=== PATIENT | female | born 1970 | race Caucasian/White ===

== ENCOUNTER 2017-01-15 15:08 | Inpatient (IN) | payer MEDICAID ==
[2017-01-15 16:22] LABS: % IMMATURE GRANULYOCYTES 0.3 % (0.0-1.1); ABSOLUTE IMMATURE GRANULOCYTES 0.03 10^3/uL (0.00-0.10); ADD DIFF? NO; ADD MORPH? NO; ADD SCAN? NO; ATYPICAL LYMPHOCYTE FLAG 10 (0-99); FRAGMENT RBC FLAG 0 (0-99); HEMATOCRIT 33.4 % (38.0-47.0); HEMOGLOBIN 11.1 g/dL (12.6-16.3); LEFT SHIFT FLG 0 (0-99); LIPEMIA HEMOLYSIS FLAG 80 (0-99); MEAN CELL HEMOGLOBIN 32.1 pg (27.9-34.1); MEAN CELL HEMOGLOBIN CONCENTR. 33.2 g/dL (32.4-36.7); MEAN CELL VOLUME 96.5 fL (81.5-99.8); MEAN PLATELET VOLUME 9.3 fL (8.7-11.7); PLATELET CLUMPS FLAG 0 (0-99); PLATELET COUNT 473 10^3/uL (150-400); RED BLOOD CELL COUNT 3.46 10^6/uL (4.18-5.33); RED CELL DISTRIBUTION WIDTH 13.8 % (11.5-15.2)
[2017-01-15 16:26] LABS: APTT 33.2 SEC (23.0-38.0); INR 1.25 (0.83-1.16); PROTIME(PATIENT) 15.7 SEC (12.0-15.0)
[2017-01-15 16:28] LABS: ALANINE AMINOTRANSFERASE 33 IU/L (9-52); ALBUMIN 3.6 g/dL (3.5-5.0); ALKALINE PHOSPHATASE 100 IU/L (38-126); ANION GAP 11 mEq/L (8-16); ASPARTATE AMINOTRANSFERASE 51 IU/L (14-46); BILIRUBIN,TOTAL 0.6 mg/dL (0.1-1.4); BILIRUBIN-CONJUGATED 0.6 mg/dL (0.0-0.5); CALCIUM 9.3 mg/dL (8.5-10.4); CARBON DIOXIDE 23 mEq/l (22-31); CHLORIDE 101 mEq/L (97-110); CREATININE 0.4 mg/dL (0.6-1.0); GLOMERULAR FILTRATION RATE > 60; GLUCOSE 93 mg/dL (70-100); POTASSIUM 4.3 mEq/L (3.5-5.2); SODIUM 135 mEq/L (134-144); TOTAL PROTEIN 8.5 g/dL (6.3-8.2)
[2017-01-15] MEDS ORDERED: PANTOPRAZOLE SODIUM 40 MG in NS 100 ML IV ONE (16:29)
[2017-01-15] MEDS ORDERED: TEMAZEPAM 15 MG CAP PO PRN (16:48)
[2017-01-15] MEDS ORDERED: ONDANSETRON DISINTEGRATING 4 MG TAB PO PRN (16:48)
[2017-01-15] MEDS ORDERED: ONDANSETRON 4 MG/2 ML VIAL IVP PRN (16:48)
--- NOTE | 2017-01-15 17:10 | EDPHY ---
H & P Time Seen by Provider: 01/15/17 15:27 HPI/ROS: CHIEF COMPLAINT: Melena HISTORY OF PRESENT ILLNESS: 46-year-old female presents to the emergency department by private vehicle with her mother complaining of several weeks of melena. The patient states that she has chronic low back pain and has been taking at least 20 ibuprofen daily. She also is an alcoholic and drinks daily. She last drank this morning at 11:00 a.m.. She denies feeling weak. She denies chest pain. She does feel like she is having increasing difficulty breathing. She has had ongoing cough. She has a history of asthma and is a chronic smoker. She complains of lower abdominal pain. She denies urinary symptoms. She has a chronic wound to the lateral aspect of her right foot that is being followed by infectious disease. No fevers or chills. She has never had problems with GI bleed in the past. Her mother states that she has been eating very little because she is not hungry. REVIEW OF SYSTEMS: Constitutional: No fever, no chills. Eyes: No double or blurry vision. ENT: No sore throat. Respiratory: Shortness of breath, cough Cardiac: No chest pain. Gastrointestinal: Abdominal pain and melena as above. No vomiting. Little appetite. Genitourinary: No dysuria. Musculoskeletal: Chronic back pain. No neck pain. Skin: No rashes. Neurological: No headache. Past Medical/Surgical History: Seizure disorder, COPD, arthritis, alcoholism, chronic right drop foot from previous right hip surgery, depression, bilateral hip replacement due to avascular necrosis Social History: Single and lives alone Smoking Status: Heavy smoker Physical Exam: General Appearance: Alert, no distress. Mother at bedside. Blood pressure 131/ 79, heart rate 94, 90% on room air, afebrile 36.9 Eyes: Pupils equal and round. Extraocular motions are all intact. ENT: Mouth: Mucous membranes appear dry. Respiratory: Diffuse expiratory rhonchi throughout. No rales. No respiratory distress. Cardiovascular: Regular rate and rhythm. Gastrointestinal: Abdomen is soft and seems distended. She has mild tenderness with palpation in her suprapubic area. There is no rebound, guarding or masses noted. No CVA tenderness bilaterally. Neurological: Alert and oriented x 3, cranial nerves II through XII grossly intact Rectal exam: Performed with nurse, Domonique, at bedside. Normal rectal tone. Mucous noted with very light colored stool. No obvious melena or bright red blood. Skin: Warm and dry, no rashes. Wound noted to the lateral, plantar aspect of the right foot. Obvious deformity noted to the right foot which is chronic. There is no surrounding redness. There is no drainage from the wound. There is also a wound to the dorsal lateral aspect of her right foot which is minimally tender. There is no redness or warmth. Musculoskeletal: Nontender to palpate along the cervical, thoracic or lumbar spine. Neck is supple. Extremities: Full range of motion and no peripheral edema. Psychiatric: Patient is oriented X 3, there is no agitation. Constitutional: Initial Vital Signs Temperature (C) 36.9 C 01/15/17 15:13 Heart Rate 94 01/15/17: Respiratory Rate 20 01/15/17 15:13 Blood Pressure 131/79 H 01/15/17 15:13 O2 Sat (%) 90 L 01/15/17 15:13 O2 Delivery Mode Room Air O2 (L/minute) 1 Allergies/Adverse Reactions: phenytoin sodium [From Dilantin] Allergy (Intermediate, Verified 01/15/17 15:09) facial swelling, drunk feeling phenytoin sodium extended [From Dilantin] Allergy (Intermediate, Verified 15:09) facial swelling, drunk feeling clarithromycin [From Biaxin] Allergy (Mild, Verified 01/15/17 15:09) FACIAL EDEMA Penicillins Allergy (Mild, Verified 01/15/17 15:09) FACIAL EDEMA Sulfa (Sulfonamide Antibiotics) Allergy (Mild, Verified 01/15/17 15:09) FACIAL EDEMA/ HIVES levofloxacin [From Levaquin] Allergy (Verified 01/15/17 15:09) FACIAL EDEMA, DRUNK FEELING Home Medications: Medication Instructions Recorded Albuterol [Proventil Inhaler HFA 1 - 2 puffs IH Q4 PRN 01/28/14 (*)] Multivitamins [Multivitamin (*)] 1 each PO DAILY #0 tab 05/31/14 Thiamine HCl [Vitamin B-1] 100 mg PO DAILY #0 tab 05/31/14 carBAMazepine ER [Carbatrol (*)] 300 mg PO BID #60 cap 05/31/14 Alendronate Sodium [Fosamax 70 MG 70 mg PO WE@0700 10/30/14 (*)] Calcium Carbonate [Oyster Shell 500 mg PO BID 10/30/14 Calcium 500 mg (*)] Venlafaxine Xr [Effexor Xr 75MG 150 mg PO HS 10/30/14 (*)] Acetaminophen [Tylenol 650/20.3ML 325 - 650 mg TUBE Q6 PRN #0 udcup 11/18/14 Oral Liq (*)] Folic Acid [Folic Acid 1 MG (*)] 1 mg PO DAILY #0 tab 11/18/14 Medical Decision Making ED Course/Re-evaluation: 46-year-old female presents to the emergency department with melena. The patient is hemodynamically stable. This has been going on for several weeks. Patient will be admitted to the hospitalist. Hematocrit today is 34%, hemoglobin 11. No other recent laboratory studies to compare this to. Patient has chronic wounds to the right foot which are being followed by infectious disease. The mother changes the bandage typically every 3 days and states that it is definitely improving. No signs of cellulitis today. Afebrile. Patient was given DuoNeb in the emergency department. Chest x-ray is pending. Patient will be admitted to Dr. Gonzalez, hospitalist. I spoke with Dr. Shruti Dwyer who was on-call for Gastroenterology who did not feel that the patient required octreotide currently. He feels that this is likely subacute and they will plan on doing endoscopy in the morning. She is allowed to have clear liquids until midnight. Differential Diagnosis: Including but not limited to GI bleed, gastritis, esophageal varices, alcoholic gastritis Shortness of breath including but not limited to pulmonary infectious process, COPD, asthma, pulmonary embolus and congestive heart failure. - Data Points Laboratory Results: Laboratory Results 01/15/17 16:00 01/15/17 16:00 01/15/17 01/15/17 01/15/17 16:00 16:00 16:00 WBC RBC Hgb Hct MCV MCH MCHC RDW Plt Count MPV Neut % (Auto) Lymph % (Auto) [place] % (Auto) Eos % (Auto) Baso % (Auto) Nucleat RBC Rel Count Absolute Neuts (auto) Absolute Lymphs (auto) Absolute Monos (auto) Absolute Eos (auto) Absolute Basos (auto) Absolute Nucleated RBC Immature Gran % Immature Gran # PT 15.7 SEC H SEC (12.0-15.0) INR 1.25 H (0.83-1.16) APTT 33.2 SEC SEC (23.0-38.0) Sodium Potassium Chloride Carbon Dioxide Anion Gap BUN Creatinine Estimated GFR Glucose Calcium Total Bilirubin Conjugated Bilirubin Unconjugated Bilirubin AST ALT Alkaline Phosphatase Total Protein Albumin Lipase Beta HCG, Qual NEGATIVE Stool Occult Bld Scrn POSITIVE H (NEGATIVE) 01/15/17 01/15/17 16:00 16:00 WBC 8.96 10^3/uL 10^3/uL (3.80-9.50) RBC 3.46 10^6/uL L 10^6/uL (4.18-5.33) Hgb 11.1 g/dL L g/dL (12.6-16.3) Hct 33.4 % L % (38.0-47.0) MCV 96.5 fL fL (81.5-99.8) MCH 32.1 pg pg (27.9-34.1) MCHC 33.2 g/dL g/dL (32.4-36.7) RDW 13.8 % % (11.5-15.2) Plt Count 473 10^3/uL H 10^3/uL (150-400) MPV 9.3 fL fL (8.7-11.7) Neut % (Auto) 49.2 % % (39.3-74.2) Lymph % (Auto) 28.1 % % (15.0-45.0) [place] % (Auto) 19.5 % H % (4.5-13.0) Eos % (Auto) 1.9 % % (0.6-7.6) Baso % (Auto) 1.0 % % (0.3-1.7) Nucleat RBC Rel Count 0.0 % % (0.0-0.2) Absolute Neuts (auto) 4.40 10^3/uL 10^3/uL (1.70-6.50) Absolute Lymphs (auto) 2.52 10^3/uL 10^3/uL (1.00-3.00) Absolute Monos (auto) 1.75 10^3/uL H 10^3/uL (0.30-0.80) Absolute Eos (auto) 0.17 10^3/uL 10^3/uL (0.03-0.40) Absolute Basos (auto) 0.09 10^3/uL 10^3/uL (0.02-0.10) Absolute Nucleated RBC 0.00 10^3/uL 10^3/uL (0-0.01) Immature Gran % 0.3 % % (0.0-1.1) Immature Gran # 0.03 10^3/uL 10^3/uL (0.00-0.10) PT INR APTT Sodium 135 mEq/L mEq/L (134-144) Potassium 4.3 mEq/L mEq/L (3.5-5.2) Chloride 101 mEq/L mEq/L (97-110) Carbon Dioxide 23 mEq/l mEq/l (22-31) Anion Gap 11 mEq/L mEq/L (8-16) BUN 5 mg/dL L mg/dL (7-23) Creatinine 0.4 mg/dL L mg/dL (0.6-1.0) Estimated GFR > 60 Glucose 93 mg/dL mg/dL (70-100) Calcium 9.3 mg/dL mg/dL (8.5-10.4) Total Bilirubin 0.6 mg/dL mg/dL (0.1-1.4) Conjugated Bilirubin 0.6 mg/dL H mg/dL (0.0-0.5) Unconjugated Bilirubin 0.0 mg/dL mg/dL (0.0-1.1) AST 51 IU/L H IU/L (14-46) ALT 33 IU/L IU/L (9-52) Alkaline Phosphatase 100 IU/L IU/L (38-126) Total Protein 8.5 g/dL H g/dL (6.3-8.2) Albumin 3.6 g/dL g/dL (3.5-5.0) Lipase 297.0 IU/L IU/L (23-300) Beta HCG, Qual Stool Occult Bld Scrn Medications Given: Discontinued Medications Pantoprazole Sodium 40 mg/ (Sodium Chloride) 100 mls @ 200 mls/hr IV EDNOW ONE Stop: 01/15/17 16:58 Last Admin: 01/15/17 17:09 Dose: 100 mls Departure - Departure Disposition: [facility] Acute Clinical Impression: Chronic wound right foot, COPD exacerbation GI bleed Qualifiers: GI bleed type/associated pathology: melena Qualified Code(s): K92.1 - Melena Chronic low back pain Qualifiers: Back pain laterality: unspecified Sciatica presence: without sciatica Qualified Code(s): M54.5 - Low back pain Condition: Good
[2017-01-15] MEDS ORDERED: LORazepam 1 MG TAB PO ONE (17:11)
[2017-01-15] MEDS ORDERED: LORazepam 2 MG/ML INJ IVP PRN (17:11)
[2017-01-15] MEDS ORDERED: LORazepam 2 MG/ML INJ IVP ONE (17:11)
[2017-01-15] MEDS ORDERED: IPRATROPIUM/ALBUTEROL 3 ML DEYVIAL IH ONE (17:16)
--- NOTE | 2017-01-15 17:53 | GHP ---
[f rep st] HISTORY AND PHYSICAL DATE OF ADMISSION: 01/15/2017 CHIEF COMPLAINT: Dark tarry stools. HISTORY OF PRESENT ILLNESS: This is a 46-year-old female who presented initially to her PCPs office with complaints of dark tarry stools. This has been going on for 2-3 weeks. She has had a few episodes of emesis which was bloody. She has felt mildly dizzy. No chest pain. Some shortness of breath. She has been taking about 20 ibuprofen a day given chronic back pain. She drinks at least 6 drinks a day. She was sent from her PCPs office to the emergency department for further evaluation of these complaints. PAST MEDICAL/SURGICAL HISTORY: 1. COPD, currently smoking. 2. Alcohol abuse, history of withdrawal, drinking 6 drinks a day. 3. 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 4. COPD. 5. Drop foot due to right hip replacement. 6. Chronic right foot wound, being followed by Dr. Young. 7. Multiple falls with a history of frontal intracranial hemorrhage and subdural hematoma. 8. Avascular necrosis, status post bilateral hip replacements. 9. Depression. MEDICATIONS: Please see medication reconciliation. ALLERGIES: Phenytoin, clarithromycin, penicillin, sulfa, Levaquin. FAMILY HISTORY: No seizure disorder. SOCIAL HISTORY: She lives in an apartment. She is currently drinking and smoking as above. REVIEW OF SYSTEMS: 10-point review of systems is conducted and is negative except per HPI. PHYSICAL EXAMINATION: VITAL SIGNS: Blood pressure 131/79, heart rate is 94, respiration rate is 20, saturating at 90% on room air, temperature 36.9. GENERAL: The patient is a pleasant female who appears mildly uncomfortable. Otherwise in no acute distress. HEENT: Shows her to be normocephalic, atraumatic. CARDIOVASCULAR: Exam shows a regular rate and rhythm. No murmurs , rubs, or gallops. PULMONARY: Exam shows her lungs to be diffusely rhonchorous with some wheezes. ABDOMINAL: Exam is soft. She is very mildly tender to palpation diffusely. There is no hepatosplenomegaly. SKIN: Exam shows no rash. GENITOURINARY: Exam shows no Marley. NEUROLOGIC: Exam shows her to be alert and oriented x3. She is moving all extremities. PSYCHIATRIC: Exam shows normal mood and affect. EXTREMITIES: Exam shows right lower extremity to have a foot drop. She has a chronic appearing ulcer in the right foot which is nontender to palpation. There is no surrounding erythema or purulence. LABS: Hemoglobin is 11. INR is 1.25. Creatinine is 0.4, BUN is 5, AST is 51. FOBT is positive. DATA: I discussed this with Joanne Rush in the emergency department. IMPRESSION AND PLAN: A 46-year-old female with likely subacute upper gastrointestinal bleed. 1. Upper gastrointestinal bleed: Dr. Dwyer has been consulted. We will plan an endoscopy tomorrow. She is hemodynamically stable. Not tachycardic. Hemoglobin is 11, which is down from her most recent check, but stable with her previous hemoglobins. BUN is notably 5. She will be clear liquids until midnight, n.p.o. after midnight. She will be treated with Protonix 40 mg IV b.i.d. This is a high risk diagnosis. 2. Chronic obstructive pulmonary disease with mild exacerbation: Will scheduled nebulizers for her. She is still smoking. We will hold on prednisone in the setting of a gastrointestinal bleed. 3. Alcohol abuse: There is concern for withdrawal here. I will place her on CIWA. Treat her with symptom triggered benzodiazepines. 4. Seizure disorder: It appears that she is on Tegretol. We will continue this when her medications are reconciled. 5. Drop foot with chronic right lower extremity wound: We will place wound care consult. Does not appear infected at this time. 6. Venous thromboembolism risk is low. /[id number]/MODL MTDD
[2017-01-15] MEDS: oxyCODONE IR 5 MG TAB PO PRN (18:30)
[2017-01-15] MEDS: NS 1,000 ML IV SCH (18:32)
[2017-01-15 18:50] LABS: HEMATOCRIT 34.8 % (38.0-47.0); HEMOGLOBIN 11.6 g/dL (12.6-16.3)
[2017-01-15 18:58] LABS: ETHANOL SERUM 147 mg/dL (0-10)
[2017-01-15] MEDS ORDERED: ALBUTEROL 60 PUFFS/8 GM MDI IH PRN (19:02)
--- NOTE | 2017-01-15 19:26 | WOCRNPDOC ---
WOCRN Advanced Assessment Note - Skin Integrity Problem, Advanced Assess Right Lateral Ankle Pressure Injury Dressing Type: Allevyn Life Dressing Description: Clean/Dry, Intact Integumentary Issue Intervention: Dressing Changed, Dressing Initialed & Dated Lexy Wound Tissue: Blanching, Erythema Wound Bed Color: Red Wound Bed Constitution: Smooth Tissue Wound Edges: Epithelizing Site Measurement - Head-to-Toe Length X Width X Depth (cm): 0.2x0.4x0.1 Pressure Injury Stage: Stage 2 Pressure Injury Present on Admit: Yes Skin Integrity Problem Comment: Wound almost healed. Keep covered for protection. Wound care will round again on 01/22. Right Lateral Foot Pressure Injury Dressing Type: Allevyn Life Exudate Amount: Scant Integumentary Issue Intervention: Dressing Changed, Dressing Initialed & Dated Lexy Wound Tissue: Calloused (and lexy wound skin is green.) Wound Bed Color: [place] Wound Bed Constitution: Smooth Tissue, Undermining (0.3 cm from 2 to 9 oclock) Wound Edges: Not Attached, Epibole, Thick Site Measurement - Head-to-Toe Length X Width X Depth (cm): 0.9x0.6x0.5 Pressure Injury Stage: Stage 3 Pressure Injury Present on Admit: Yes Extremity Temperature: Warm Skin Integrity Problem Comment: Cleaned with wound cleanser. Green skin lexy wound comes off somewhat with cleaning. Sneha moistened with ns and packed lightly in wound bed. Covered with Allevyn life. Student Cinthya in room for care. Discussed plan and confirmed staging with Sonya Bar outpatient wound rn.
[2017-01-15] MEDS: VENLAFAXINE XR 150 MG CAP PO SCH (20:35)
[2017-01-15] MEDS: carBAMazepine ER 300 MG CAP PO SCH (20:35)
[2017-01-15] MEDS: PANTOPRAZOLE SODIUM 40 MG in NS 100 ML IV SCH (20:35)
[2017-01-15] MEDS: CALCIUM CARBONATE 500 MG TAB PO SCH (20:35)
[2017-01-16] MEDS: IPRATROPIUM/ALBUTEROL 3 ML DEYVIAL IH SCH ×5 (00:53→20:48)
[2017-01-16 01:13] LABS: HEMOGLOBIN 10.9 g/dL (12.6-16.3)
[2017-01-16] MEDS: oxyCODONE IR 5 MG TAB PO PRN ×2 (03:56→23:24)
[2017-01-16 04:59] LABS: % IMMATURE GRANULYOCYTES 0.5 % (0.0-1.1); ABSOLUTE IMMATURE GRANULOCYTES 0.04 10^3/uL (0.00-0.10); ADD DIFF? NO; ADD MORPH? NO; ADD SCAN? NO; ATYPICAL LYMPHOCYTE FLAG 10 (0-99); FRAGMENT RBC FLAG 0 (0-99); HEMATOCRIT 33.4 % (38.0-47.0); HEMOGLOBIN 10.8 g/dL (12.6-16.3); LEFT SHIFT FLG 0 (0-99); LIPEMIA HEMOLYSIS FLAG 80 (0-99); MEAN CELL HEMOGLOBIN 32.2 pg (27.9-34.1); MEAN CELL HEMOGLOBIN CONCENTR. 32.3 g/dL (32.4-36.7); MEAN CELL VOLUME 99.7 fL (81.5-99.8); MEAN PLATELET VOLUME 9.4 fL (8.7-11.7); PLATELET CLUMPS FLAG 0 (0-99); PLATELET COUNT 424 10^3/uL (150-400); RED BLOOD CELL COUNT 3.35 10^6/uL (4.18-5.33); RED CELL DISTRIBUTION WIDTH 13.9 % (11.5-15.2)
[2017-01-16] MEDS: NS 1,000 ML IV SCH ×2 (05:05→17:04)
[2017-01-16 05:25] LABS: ALANINE AMINOTRANSFERASE 30 IU/L (9-52); ALBUMIN 3.1 g/dL (3.5-5.0); ALKALINE PHOSPHATASE 101 IU/L (38-126); ANION GAP 6 mEq/L (8-16); ASPARTATE AMINOTRANSFERASE 33 IU/L (14-46); BILIRUBIN,TOTAL 0.5 mg/dL (0.1-1.4); CALCIUM 8.6 mg/dL (8.5-10.4); CARBON DIOXIDE 27 mEq/l (22-31); CHLORIDE 105 mEq/L (97-110); CREATININE 0.4 mg/dL (0.6-1.0); GLOMERULAR FILTRATION RATE > 60; GLUCOSE 90 mg/dL (70-100); MAGNESIUM 1.5 mg/dL (1.6-2.3); POTASSIUM 4.1 mEq/L (3.5-5.2); SODIUM 138 mEq/L (134-144); TOTAL PROTEIN 7.6 g/dL (6.3-8.2)
[2017-01-16] MEDS ORDERED: PROPOFOL 200 MG/20 ML VIAL ONE (08:53)
--- NOTE | 2017-01-16 09:21 | SUROPNOTE ---
[facility] Operative Report - Surgery BRIEF EGD NOTE, FULL NOTE DICTATE EGD Indiction: melena, anemia Medication: per anesthesia Complications: none acutely Findings: 1. Esophagus - mild distal esophagitis 2. Stomach - moderate gastritis throughout - 2 small, gastric ulcers in the antrum - no endoscopic stigmata of bleeding 3. duodenum - larger, deep, ulcer in 2nd portion - no stigmata of bleeding IMPRESSION/RECS: 1. GI BLEED - gastritis and peptic ulcer disease - no stigmata of bleeding at EGD, so no endo therapy applied - ok to change PPI to IV BID, and once tolerating po to PO BID - ok to advance diet - if has evidence of rebleeding, would consider repeat EGD - DC all NSAID use - recommend BID PPI PO x 12 weeks, the QD thereafter - could consider dc of PPI, rat exterminator, if pt can dc NSAIDs/ETOH - but if can not dc NSAIDs care home OR continues to consume ETOH, favor prolonged PPI PO as secondary prophylaxis - h.pylori serology negative - my office will f/u biopsy results with patient - will sign off, call with questions
--- NOTE | 2017-01-16 09:43 | GCON ---
[f rep st] CONSULTATION INPATIENT CONSULTATION NOTE REFERRING PHYSICIAN: Jose Francisco Gonzalez MD REASON FOR CONSULTATION: Melena and anemia. CHIEF COMPLAINT: I was asked to see the patient by Dr. Gonzalez for the evaluation of melena and anemia. HISTORY OF PRESENT ILLNESS: Briefly, the patient is a pleasant 46-year-old alcoholic female who was admitted to the hospital on 01/15/2017 for the evaluation of nausea, abdominal pain, coffee-ground emesis, and melena. She reports she was in her usual state of health until approximately 3 weeks ago when she began having increasing amounts of back pain and abdominal pain. She has been using ibuprofen chronically, with increasing amounts recently. She also drinks at least 6 drinks per day. She was sent by her primary care doctor to the emergency room for evaluation. She reports prior to this she has had no history of melena or coffee-ground emesis. She does have intermittent issues of heartburn and indigestion as well as reflux, but these have been relatively quiescent. She reports some mild dizziness but denies shortness of breath or chest discomfort. PAST MEDICAL HISTORY: Includes COPD, alcohol abuse, seizure disorder, chronic right foot wound, falls complicated by hemorrhage and subdural hematoma, history of avascular necrosis for which she has had hip replacement, depression. ALLERGIES: Phenytoin, clarithromycin, penicillin, sulfa, and Levaquin. MEDICATIONS: Tylenol, calcium, Carbatrol, iron, folic acid, Ativan, Zofran, oxycodone, pantoprazole, Effexor, and thiamine. FAMILY HISTORY: No history of seizure disorders or alcohol abuse. SOCIAL HISTORY: She currently drinks and smokes. REVIEW OF SYSTEMS: A 10-system review was undertaken with the patient and is negative except for those details described in the History of Present Illness. PHYSICAL EXAM: GENERAL: This is a well-developed female in no apparent distress. HEENT: Her pupils are equal, round, reactive to light and accommodation. Her sclerae are nonicteric. Oropharynx is clear. NECK: Supple without lymphadenopathy. HEART: Regular without murmur. ABDOMEN: Soft with mild distention but no tenderness to palpation. LUNGS: CTA EXTREMITIES: Free of cyanosis, clubbing, and edema. NEURO: Grossly nonfocal, although she is slightly tremulous. SKIN: Warm and dry without jaundice. PSYCH: Stable mood and affect. LABORATORY STUDIES: On admission, white count was 8.96, hemoglobin 11.1, hematocrit of 33.4, platelet count of 473. INR of 1.25. Sodium of 135, potassium of 4.3, chloride of 101, bicarb of 23, BUN of 5, creatinine of 0.4, total bilirubin of 0.6, AST of 51, ALT of 33, alkaline phosphatase of 100. Alcohol level on admission was 147. H pylori antibody testing is negative. IMPRESSIONS AND PLAN: The patient is a heavy alcohol user who has also been using large amounts of nonsteroidal antiinflammatory therapies. She has been admitted to the hospital for the evaluation of melena, coffee-ground emesis, and anemia. The differential diagnosis strongly favors peptic disease in this history, although varices, severe gastritis, Dieulafoy, AVM, or even colonic sources of bleeding are possible. At this time, I recommend she remain n.p.o. on an IV proton pump inhibitor. We will arrange upper endoscopy. Given her active alcohol use, seizure disorder, potential for alcohol withdrawal, she is at somewhat high risk for conscious sedation. We will have anesthesia help us to sedate this patient in order to more safely and comfortably provide her sedation for the procedure. Pending the results of upper endoscopy, we can consider additional workup. /[id number]/MODL MTDD
--- NOTE | 2017-01-16 09:49 | GPN ---
[f rep st] PROCEDURE NOTE PROCEDURE: Upper endoscopy. INDICATION: Melena and anemia. MEDICATIONS: Per Anesthesia. COMPLICATIONS: None acutely. DESCRIPTION OF PROCEDURE: After informed consent was obtained, the patient was placed in left later al decubitus position and the forward viewing upper endoscope was advanced through the mouth into th e proximal duodenum. Retroflex views in the gastric cardia were obtained. FINDINGS: 1. Esophagus: She had mild distal esophagitis but no varices were visualized. 2. Stomach: The patient had mild to moderate gastritis throughout the stomach. In the gastric ant rum, there were 2 gastric ulcers. These were deep, small, and clean-based. There were no endoscopi c stigmata of bleeding. No endo therapies were applied. 3. Duodenum: The duodenal bulb showed significant duodenitis. In the 2nd portion of the duodenum, there was a large, deep, cratered duodenal ulcer. This ulcer had food debris within it. Lavage re vealed a clean base without stigmata of bleeding. No endoscopic therapy was applied. 4. Biopsies of the gastritis/ulcer were obtained. IMPRESSION AND PLAN: Gastrointestinal bleed. This patient has had melena over the last 3 weeks fro m intermittent bleeding from gastritis and gastric ulcer and duodenal ulcer. Overall, the duodenal ulcer was the largest and most likely to be the reason for her persistent anemia, coffee-grounds, an d melena. Luckily, there were no stigmata of recent or active bleeding. No endoscopic therapy was applied. At this time, I recommend that the patient have her proton pump inhibitor changed from IV drip to IV b.i.d. Once she is able to tolerate p.o., we can change this therapy to p.o. b.i.d. At this time, given the clean-based nature of the ulcers, we can advance her diet. If she has evidence of rebleeding, would consider repeat upper endoscopy. If she has worsening abdominal pain, would b e concerned about the possibility of perforation in the larger, cratered duodenal ulcer. At this ti me, I recommend she discontinue all nonsteroidal therapies. If possible, she should also discontinu e alcohol. If she is not able to discontinue nonsteroidals or alcohol, I fear she may have rebleedi ng. If she is not able to discontinue nonsteroidals or alcohol, I recommend prolonged daily PPI the rapy as secondary prophylaxis. Helicobacter pylori serologies were negative during this admission. My office will follow up the biopsy results with the patient. At this time, I will sign off the patient's care. If she has evidence of worsening pain or repeat b leeding or there are any questions, please feel free to contact me. /[id number]/MODL
[2017-01-16] MEDS: PANTOPRAZOLE SODIUM 40 MG in NS 100 ML IV SCH ×2 (11:03→21:37)
[2017-01-16] MEDS: carBAMazepine ER 300 MG CAP PO SCH ×2 (11:03→21:37)
[2017-01-16] MEDS: FOLIC ACID 1 MG TAB PO SCH (11:04)
[2017-01-16] MEDS: FERROUS SULFATE 325 MG TAB PO SCH (11:05)
[2017-01-16] MEDS: CALCIUM CARBONATE 500 MG TAB PO SCH ×2 (11:05→21:37)
[2017-01-16] MEDS: THIAMINE HCL 100 MG TAB PO SCH (11:05)
--- NOTE | 2017-01-16 13:31 | HOSPPROG ---
Hospitalist Progress Note Assessment/Plan: 46-year-old female and a known chronic alcoholic presents with melena. Her initial hemoglobin was 11.2 and she underwent an EGD which showed an ulceration in the duodenum. There were no signs of active bleeding. Patient is new to me today. -acute GI bleed secondary to a duodenal ulcer possibly gastric ulcerations. On EGD there was no signs of active bleeding. Plan is to place her on twice daily Protonix and then trend sedation to p.o. Protonix twice daily. On EGD the H pylori was negative, stool was guaiac positive and hemoglobin is now stable at 10.8. -acute alcohol intoxication with known chronic alcohol abuse. Patient admits to 6 beers per day. She is unclear if she wants to stop the use of alcohol. She is on a CIWA protocol with values between 1 and 4 and currently well controlled there has been no seizures. -seizure disorder under maintenance therapy this is probably exacerbated by alcohol abuse but is thought to be of left temporal origin. -COPD: Stable no signs of hypoxemia -hypomagnesemia with magnesium 1.5 and currently being repleted. -is S PCM: Albumin 3.1. Patient has limited appetite at this time but will watch caloric intake. Plan: Patient has our own apartment but clearly at this point cannot take care of herself she has the assistance of her mother but this will be insufficient. We are going to search for a SNF placement for this lady. Once again this whole plan depends on her cessation of alcohol. The plan regarding her DU with denial ulcer is that she will be on PPI medication on a twice daily basis for the next 8-12 weeks and then on a daily blood basis indefinitely until she stops the use of alcohol. -time greater than 35 minutes Subjective: No complaints she has a limited appetite slightly drowsy post EGD. Objective: Vital Signs Temp Pulse Resp BP Pulse Ox 36.6 C 89 18 120/67 91 L 01/16/17 12:44 01/16/17 12:44 01/16/17 12:44 01/16/17 12:44 01/16/17 12:44 Laboratory Results 01/16/17 04:46 01/16/17 04:46 01/15/17 01/16/17 01/17/17 05:59 05:59 05:59 Intake Total 100 250 Balance 100 250 PT 15.7 SEC (12.0-15.0) H 01/15/17 16:00 INR 1.25 (0.83-1.16) H 01/15/17 16:00 - Physical Exam Constitutional: chronically ill appearing, unkempt Eyes: PERRL, icteric sclera Ears, Nose, Mouth, Throat: moist mucous membranes, hearing normal Cardiovascular: regular rate and rhythym, no murmur, rub, or gallop Respiratory: no respiratory distress, bronchial breath sounds Gastrointestinal: normoactive bowel sounds, soft, non-tender abdomen Genitourinary: no bladder fullness Skin: warm, other (pale) Musculoskeletal: generalized weakness Neurologic: AAOx3, CN II-XII Intact Psychiatric: interacting appropriately, poor insight, poor judgement ICD10 Worksheet Patient Problems: Problems Problem Status Onset 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
[2017-01-16] MEDS ORDERED: MAGNESIUM SULF 1 GM/DEXTROSE 100 ML IV ONE (16:50)
[2017-01-16] MEDS: LORazepam 1 MG TAB PO PRN (16:58)
[2017-01-16 21:10] LABS: HEMATOCRIT 32.6 % (38.0-47.0); HEMOGLOBIN 10.6 g/dL (12.6-16.3)
[2017-01-16] MEDS: VENLAFAXINE XR 150 MG CAP PO SCH (21:37)
[2017-01-17] MEDS: oxyCODONE IR 5 MG TAB PO PRN (04:16)
[2017-01-17 05:06] LABS: % IMMATURE GRANULYOCYTES 0.1 % (0.0-1.1); ABSOLUTE IMMATURE GRANULOCYTES 0.01 10^3/uL (0.00-0.10); ADD DIFF? NO; ADD MORPH? NO; ADD SCAN? NO; ATYPICAL LYMPHOCYTE FLAG 0 (0-99); FRAGMENT RBC FLAG 0 (0-99); HEMATOCRIT 32.9 % (38.0-47.0); HEMOGLOBIN 10.7 g/dL (12.6-16.3); LEFT SHIFT FLG 0 (0-99); LIPEMIA HEMOLYSIS FLAG 80 (0-99); MEAN CELL HEMOGLOBIN 31.9 pg (27.9-34.1); MEAN CELL HEMOGLOBIN CONCENTR. 32.5 g/dL (32.4-36.7); MEAN CELL VOLUME 98.2 fL (81.5-99.8); MEAN PLATELET VOLUME 9.5 fL (8.7-11.7); PLATELET CLUMPS FLAG 0 (0-99); PLATELET COUNT 383 10^3/uL (150-400); RED BLOOD CELL COUNT 3.35 10^6/uL (4.18-5.33); RED CELL DISTRIBUTION WIDTH 13.6 % (11.5-15.2)
[2017-01-17 05:19] LABS: ALANINE AMINOTRANSFERASE 27 IU/L (9-52); ALKALINE PHOSPHATASE 100 IU/L (38-126); ANION GAP 8 mEq/L (8-16); ASPARTATE AMINOTRANSFERASE 28 IU/L (14-46); BILIRUBIN,TOTAL 0.6 mg/dL (0.1-1.4); CALCIUM 8.3 mg/dL (8.5-10.4); CARBON DIOXIDE 26 mEq/l (22-31); CHLORIDE 103 mEq/L (97-110); CREATININE 0.4 mg/dL (0.6-1.0); GLOMERULAR FILTRATION RATE > 60; GLUCOSE 91 mg/dL (70-100); MAGNESIUM 1.7 mg/dL (1.6-2.3); POTASSIUM 3.6 mEq/L (3.5-5.2); SODIUM 137 mEq/L (134-144); TOTAL PROTEIN 7.4 g/dL (6.3-8.2)
[2017-01-17] MEDS: IPRATROPIUM/ALBUTEROL 3 ML DEYVIAL IH SCH ×4 (05:55→21:28)
[2017-01-17] MEDS: ACETAMINOPHEN 325 MG TAB PO PRN ×3 (07:43→19:54)
[2017-01-17 08:20] LABS: HEMATOCRIT 33.2 % (38.0-47.0); HEMOGLOBIN 10.8 g/dL (12.6-16.3)
[2017-01-17] MEDS: PANTOPRAZOLE SODIUM 40 MG in NS 100 ML IV SCH ×2 (08:40→19:55)
[2017-01-17] MEDS: THIAMINE HCL 100 MG TAB PO SCH (08:43)
[2017-01-17] MEDS: CALCIUM CARBONATE 500 MG TAB PO SCH ×2 (08:43→19:55)
[2017-01-17] MEDS: carBAMazepine ER 300 MG CAP PO SCH ×2 (08:43→19:55)
[2017-01-17] MEDS: FOLIC ACID 1 MG TAB PO SCH (08:43)
[2017-01-17] MEDS: FERROUS SULFATE 325 MG TAB PO SCH (08:44)
[2017-01-17] MEDS: NS 1,000 ML IV SCH (09:44)
--- NOTE | 2017-01-17 16:55 | HOSPPROG ---
Hospitalist Progress Note Assessment/Plan: 46-year-old female and a known chronic alcoholic presents with melena. Her initial hemoglobin was 11.2 and she underwent an EGD which showed an ulceration in the duodenum. There were no signs of active bleeding. Patient improved the last 24 hours. She is more alert less agitated though continues to be weak. -acute GI bleed secondary to a duodenal ulcer possibly gastric ulcerations. On EGD there was no signs of active bleeding. Plan is to place her on twice daily Protonix and then trend sedation to p.o. Protonix twice daily. On EGD the H pylori was negative, stool was guaiac positive and hemoglobin is stable at 10.8. No signs of active bleeding -acute alcohol intoxication with known chronic alcohol abuse. Patient admits to 6 beers per day. She is unclear if she wants to stop the use of alcohol. She is on a CIWA protocol with values between 1 and 4 and currently well controlled there has been no seizures. -seizure disorder under maintenance therapy this is probably exacerbated by alcohol abuse but is thought to be of left temporal origin. -COPD: Stable no signs of hypoxemia. She is on four times daily bronchodilator treatments. -hypomagnesemia with magnesium 1.5 and currently being repleted. -is SPCM: Albumin 3.0 Patient has limited appetite at this time but will watch caloric intake. Plan: Patient has our own apartment but clearly at this point cannot take care of herself she has the assistance of her mother but this will be insufficient. We are going to search for a SNF placement for this lady. Once again this whole plan depends on her cessation of alcohol. The plan regarding her DU with ulcer is that she will be on PPI medication on a twice daily basis for the next 8-12 weeks and then on a daily blood basis indefinitely until she stops the use of alcohol. -time greater than 35 minutes Subjective: Says she is feeling improved but continues to be quite weak. No nausea or vomiting she has a limited appetite but is working to eat more. Denies chest pain or shortness of breath Objective: Vital Signs Temp Pulse Resp BP Pulse Ox 36.6 C 81 16 146/77 H 93 01/17/17 16:00 01/17/17 16:00 01/17/17 16:00 01/17/17 16:00 01/17/17 16:00 Laboratory Results 01/17/17 08:10 01/17/17 04:13 01/16/17 01/17/17 01/18/17 05:59 05:59 05:59 Intake Total 2600 Balance 2600 PT 15.7 SEC (12.0-15.0) H 01/15/17 16:00 INR 1.25 (0.83-1.16) H 01/15/17 16:00 - Time Spent With Patient Time Spent with Patient: greater than 35 minutes Time Spent with Patient: Greater than 35 minutes spent on this patients care, greater than 50% of time spent counseling, educating, and coordinating care regarding the above mentioned plan. 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
[2017-01-17 19:38] LABS: HEMATOCRIT 32.3 % (38.0-47.0); HEMOGLOBIN 10.5 g/dL (12.6-16.3)
[2017-01-17] MEDS: VENLAFAXINE XR 150 MG CAP PO SCH (19:55)
[2017-01-17] MEDS: LORazepam 1 MG TAB PO PRN (20:01)
[2017-01-18] MEDS: IPRATROPIUM/ALBUTEROL 3 ML DEYVIAL IH SCH ×4 (05:08→20:56)
[2017-01-18 05:55] LABS: MAGNESIUM 1.7 mg/dL (1.6-2.3)
[2017-01-18] MEDS: ACETAMINOPHEN 325 MG TAB PO PRN ×3 (08:09→19:49)
--- NOTE | 2017-01-18 08:31 | HOSPPROG ---
Hospitalist Progress Note Assessment/Plan: 46-year-old female and a known chronic alcoholic presents with melena. Her initial hemoglobin was 11.2 and she underwent an EGD which showed an ulceration in the duodenum. There were no signs of active bleeding. Patient improved the last 24 hours. She is more alert less agitated though continues to be weak. -acute GI bleed secondary to a duodenal ulcer possibly gastric ulcerations. On EGD there was no signs of active bleeding. Plan is to place her on twice daily Protonix and then trend sedation to p.o. Protonix twice daily. On EGD the H pylori was negative, stool was guaiac positive and hemoglobin is stable at 10.8. No signs of active bleeding -acute alcohol intoxication with known chronic alcohol abuse. Patient admits to 6 beers per day. She is unclear if she wants to stop the use of alcohol. She is on a CIWA protocol with values between 1 and 4 and currently well controlled there has been no seizures. -seizure disorder under maintenance therapy this is probably exacerbated by alcohol abuse but is thought to be of left temporal origin. -COPD: Stable no signs of hypoxemia. She is on four times daily bronchodilator treatments. -hypomagnesemia with magnesium 1.5 and currently being repleted. -is SPCM: Albumin 3.0 Patient has limited appetite at this time but will watch caloric intake. Plan: Patient has our own apartment but clearly at this point cannot take care of herself she has the assistance of her mother but this will be insufficient. We are going to search for a SNF placement for this lady. Once again this whole plan depends on her cessation of alcohol. The plan regarding her DU with ulcer is that she will be on PPI medication on a twice daily basis for the next 8-12 weeks and then on a daily blood basis indefinitely until she stops the use of alcohol. -time greater than 35 minutes Subjective: No complaints. She says she has has a better appetite and is eating slightly more. No chest pain. She does not complain of shortness of breath although she is on supplemental oxygen. She reports moving her bowels. No dysuria Objective: Vital Signs Temp Pulse Resp BP Pulse Ox 36.9 C 70 16 135/75 H 97 01/18/17 04:00 01/18/17 04:00 01/18/17 04:00 01/18/17 04:00 01/18/17 04:00 Laboratory Results 01/17/17 19:28 01/17/17 04:13 01/17/17 01/18/17 01/19/17 05:59 05:59 05:59 Intake Total 2600 Balance 2600 PT 15.7 SEC (12.0-15.0) H 01/15/17 16:00 INR 1.25 (0.83-1.16) H 01/15/17 16:00 Laboratory Tests 01/15/17 01/15/17 01/16/17 16:00 18:20 01:05 WBC Hgb 11.6 L 10.9 L INR 1.25 H Albumin 01/16/17 01/17/17 01/17/17 04:46 04:13 04:13 WBC 8.57 7.58 Hgb INR Albumin 3.0 L 01/17/17 01/17/17 08:10 19:28 WBC Hgb 10.8 L 10.5 L INR Albumin - Pending Discharge Pending Discharge Within 24 Hours: No Pending Discharge Within 48 Hours: Yes Pending Discharge Date: 01/20/17 Pending Discharge Time: 11:00 - Physical Exam Constitutional: no apparent distress, chronically ill appearing Eyes: PERRL Ears, Nose, Mouth, Throat: moist mucous membranes Cardiovascular: regular rate and rhythym, no murmur, rub, or gallop Respiratory: no respiratory distress, no rales or rhonchi Gastrointestinal: normoactive bowel sounds, soft, non-tender abdomen Musculoskeletal: generalized weakness Neurologic: AAOx3, CN II-XII Intact Psychiatric: interacting appropriately ICD10 Worksheet Patient Problems: Problems Problem Status Onset 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
[2017-01-18] MEDS: CALCIUM CARBONATE 500 MG TAB PO SCH ×2 (09:08→22:15)
[2017-01-18] MEDS: PANTOPRAZOLE SODIUM 40 MG in NS 100 ML IV SCH ×2 (09:08→22:03)
[2017-01-18] MEDS: FOLIC ACID 1 MG TAB PO SCH (09:08)
[2017-01-18] MEDS: carBAMazepine ER 300 MG CAP PO SCH ×2 (09:08→22:15)
[2017-01-18] MEDS: FERROUS SULFATE 325 MG TAB PO SCH (09:08)
[2017-01-18] MEDS: THIAMINE HCL 100 MG TAB PO SCH (09:08)
[2017-01-18] MEDS: VENLAFAXINE XR 150 MG CAP PO SCH (22:14)
[2017-01-18] MEDS: LORazepam 1 MG TAB PO PRN (22:43)
[2017-01-19] MEDS: ACETAMINOPHEN 325 MG TAB PO PRN ×3 (01:15→15:38)
[2017-01-19] MEDS: IPRATROPIUM/ALBUTEROL 3 ML DEYVIAL IH SCH ×4 (05:38→22:29)
[2017-01-19] MEDS: AZITHROMYCIN IV 500 MG in D5W 250 ML IV SCH (09:19)
[2017-01-19] MEDS: carBAMazepine ER 300 MG CAP PO SCH ×2 (10:53→20:38)
[2017-01-19] MEDS: CALCIUM CARBONATE 500 MG TAB PO SCH ×2 (10:53→20:38)
[2017-01-19] MEDS: THIAMINE HCL 100 MG TAB PO SCH (10:54)
[2017-01-19] MEDS: PANTOPRAZOLE SODIUM 40 MG TAB PO SCH ×2 (10:54→20:38)
[2017-01-19] MEDS: FERROUS SULFATE 325 MG TAB PO SCH (10:54)
[2017-01-19] MEDS: FOLIC ACID 1 MG TAB PO SCH (10:54)
[2017-01-19] MEDS ORDERED: FUROSEMIDE 20 MG/2 ML VIAL IVP ONE (14:36)
[2017-01-19] MEDS ORDERED: ACETAMINOPHEN 325 MG TAB ONE (15:37)
--- NOTE | 2017-01-19 16:19 | HOSPPROG ---
Hospitalist Progress Note Assessment/Plan: 46-year-old female and a known chronic alcoholic presents with melena. Her initial hemoglobin was 11.2 and she underwent an EGD which showed an ulceration in the duodenum. There were no signs of active bleeding. The last 24 hours the patient is making slow improvement. She has been up in a chair and taking a few walks with PT. -acute GI bleed secondary to a duodenal ulcer possibly gastric ulcerations. On EGD there was no signs of active bleeding. Plan is to place her on twice daily Protonix and then trend sedation to p.o. Protonix twice daily. On EGD the H pylori was negative, stool was guaiac positive and hemoglobin is stable at 10.8. No signs of active bleeding -new problem: possible CHF, systolic: Patient has persistent rhonchi and rales despite a normal SA O2 on room air. A echocardiogram approximately 1 year ago showed an EF of 75%. Is possible she has some cardiac dysfunction from alcohol abuse. Today I will give her a dose of Lasix and see if the rales improved. -acute alcohol intoxication with known chronic alcohol abuse. Patient admits to 6 beers per day. She is unclear if she wants to stop the use of alcohol. She is on a CIWA protocol with values between 1 and 4 and currently well controlled there has been no seizures. -seizure disorder under maintenance therapy this is probably exacerbated by alcohol abuse but is thought to be of left temporal origin. -COPD: Stable no signs of hypoxemia. She is on four times daily bronchodilator treatments. -hypomagnesemia with magnesium 1.5 and currently being repleted. -is SPCM: Albumin 3.0 Patient has limited appetite at this time but will watch caloric intake. Plan: Patient has our own apartment but clearly at this point cannot take care of herself she has the assistance of her mother but this will be insufficient. We are going to search for a SNF placement for this lady. Once again this whole plan depends on her cessation of alcohol. The plan regarding her DU with ulcer is that she will be on PPI medication on a twice daily basis for the next 8-12 weeks and then on a daily blood basis indefinitely until she stops the use of alcohol. -time greater than 35 minutes Disposition: Patient to be discharged to an SNF tomorrow Subjective: No complaints though she is feeling slightly improved continues to be slightly tachypneic with exertion. Objective: Vital Signs Temp Pulse Resp BP Pulse Ox 36.9 C 82 18 127/79 H 94 01/19/17 12:00 01/19/17 12:00 01/19/17 12:00 01/19/17 12:00 01/19/17 12:00 Laboratory Results 01/17/17 19:28 01/17/17 04:13 01/18/17 01/19/17 01/20/17 05:59 05:59 05:59 Intake Total 400 Balance 400 PT 15.7 SEC (12.0-15.0) H 01/15/17 16:00 INR 1.25 (0.83-1.16) H 01/15/17 16:00 - Time Spent With Patient Time Spent with Patient: greater than 35 minutes Time Spent with Patient: Greater than 35 minutes spent on this patients care, greater than 50% of time spent counseling, educating, and coordinating care regarding the above mentioned plan. - Pending Discharge Pending Discharge Within 24 Hours: Yes Pending Discharge Date: 01/20/17 Pending Discharge Time: 11:00 - Physical Exam Constitutional: no apparent distress, chronically ill appearing Eyes: PERRL Ears, Nose, Mouth, Throat: moist mucous membranes Cardiovascular: regular rate and rhythym, systolic murmur Respiratory: expiratory wheeze, bronchial breath sounds, rhonchi Gastrointestinal: normoactive bowel sounds, soft, non-tender abdomen, no palpable masses Genitourinary: no bladder fullness Skin: warm Musculoskeletal: generalized weakness Neurologic: AAOx3, CN II-XII Intact ICD10 Worksheet Patient Problems: Problems Problem Status Onset COPD exacerbation Acute Chronic low back pain Acute GI bleed Acute Avascular necrosis of the head of femur Active Bronchitis Active Alcohol abuse with intoxication delirium Acute Alcohol abuse, continuous Acute Subdural hematoma, acute Acute
[2017-01-19] MEDS: VENLAFAXINE XR 150 MG CAP PO SCH (20:38)
[2017-01-19] MEDS: LORazepam 1 MG TAB PO PRN (20:38)
[2017-01-20] MEDS: IPRATROPIUM/ALBUTEROL 3 ML DEYVIAL IH SCH ×3 (05:45→15:50)
[2017-01-20 06:27] LABS: % IMMATURE GRANULYOCYTES 0.2 % (0.0-1.1); ABSOLUTE IMMATURE GRANULOCYTES 0.02 10^3/uL (0.00-0.10); ADD DIFF? NO; ADD MORPH? NO; ADD SCAN? NO; ATYPICAL LYMPHOCYTE FLAG 0 (0-99); FRAGMENT RBC FLAG 20 (0-99); HEMOGLOBIN 11.2 g/dL (12.6-16.3); LEFT SHIFT FLG 10 (0-99); LIPEMIA HEMOLYSIS FLAG 80 (0-99); MEAN CELL HEMOGLOBIN 32.1 pg (27.9-34.1); MEAN CELL HEMOGLOBIN CONCENTR. 32.9 g/dL (32.4-36.7); MEAN CELL VOLUME 97.4 fL (81.5-99.8); MEAN PLATELET VOLUME 10.2 fL (8.7-11.7); PLATELET CLUMPS FLAG 10 (0-99); PLATELET COUNT 352 10^3/uL (150-400); RED BLOOD CELL COUNT 3.49 10^6/uL (4.18-5.33); RED CELL DISTRIBUTION WIDTH 13.3 % (11.5-15.2)
[2017-01-20 06:59] LABS: ALANINE AMINOTRANSFERASE 29 IU/L (9-52); ALBUMIN 3.4 g/dL (3.5-5.0); ALKALINE PHOSPHATASE 106 IU/L (38-126); ANION GAP 10 mEq/L (8-16); ASPARTATE AMINOTRANSFERASE 31 IU/L (14-46); BILIRUBIN,TOTAL 0.7 mg/dL (0.1-1.4); CALCIUM 8.9 mg/dL (8.5-10.4); CARBON DIOXIDE 25 mEq/l (22-31); CHLORIDE 102 mEq/L (97-110); CREATININE 0.5 mg/dL (0.6-1.0); GLOMERULAR FILTRATION RATE > 60; GLUCOSE 85 mg/dL (70-100); POTASSIUM 3.2 mEq/L (3.5-5.2); SODIUM 137 mEq/L (134-144)
[2017-01-20 08:11] VITALS: TEMP 97.9
[2017-01-20] MEDS: AZITHROMYCIN IV 500 MG in D5W 250 ML IV SCH (09:18)
[2017-01-20] MEDS: carBAMazepine ER 300 MG CAP PO SCH (11:05)
[2017-01-20] MEDS: CALCIUM CARBONATE 500 MG TAB PO SCH (11:05)
[2017-01-20] MEDS: FOLIC ACID 1 MG TAB PO SCH (11:06)
[2017-01-20] MEDS: THIAMINE HCL 100 MG TAB PO SCH (11:06)
[2017-01-20] MEDS: FERROUS SULFATE 325 MG TAB PO SCH (11:06)
[2017-01-20] MEDS: PANTOPRAZOLE SODIUM 40 MG TAB PO SCH (11:06)
[2017-01-20] MEDS: ACETAMINOPHEN 325 MG TAB PO PRN ×2 (11:10→15:22)
[2017-01-20 11:31] VITALS: PULSE 90; RESP 14; O2SAT 96
[2017-01-20 16:01] VITALS: BP 91/68
--- NOTE | 2017-01-20 20:18 | GDS ---
[f rep st] DISCHARGE SUMMARY NEW AND ACUTE DIAGNOSES: 1. Acute gastrointestinal bleed/duodenal bleed with findings of esophagitis without varices and mil [id number] gastritis and significant duodenitis with a cratered, deep duodenal ulcer. 2. Acute exacerbation of chronic obstructive pulmonary disease with acute bronchitis. 3. Acute alcohol abuse and alcohol withdrawal. 4. 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 5. Right foot wound followed by Infectious Disease. CHRONIC DIAGNOSES: 1. Right foot drop. 2. History of multiple falls with a history of a frontal intracranial hemorrhage and subdural hemat kaylie. 3. Avascular necrosis status post bilateral hip replacements. 4. Depression. CONSULTATIONS: Gastroenterology. PROCEDURES: Esophagogastroduodenoscopy showing findings as noted above. HOSPITAL COURSE: A 46-year-old female with a known long history of alcohol abuse and COPD and tobac co abuse who presented with dark and tarry stools. She was admitted for GI bleeding and found to rahman ve esophagitis, gastritis, and deep erosive duodenal ulcer. She was placed on IV Protonix and then transitioned to p.o. b.i.d. PPI medication. She did not require transfusion. During the hospitaliz ation, she was treated for alcohol withdrawal under CIWA protocol, and treated for an acute exacerba tion of COPD with antibiotics and bronchodilators. Though she had an underlying seizure disorder, s he was treated with her usual medications and did not have an exacerbation of her seizure. Wound ca re was provided to the right foot. Note also she lists Levaquin as an allergy. She was given 1 dose Levaquin and she had a little itch ing at the injection site and a little flushing of the face. This abated easily with Benadryl. Her listed Levaquin allergy has not an allergy. I suggest she be premedicated with Benadryl before giv en Levaquin, as she safely tolerated it during this hospitalization. DISCHARGE MEDICATIONS: Azithromycin 500 mg p.o. daily x4 days, an Advair inhaler 250/50 mcg 1 puff b.i.d., Proventil rescue inhaler 1-2 puffs q.4 hours p.r.n., Protonix 40 mg b.i.d., thiamine 100 mg daily, multivitamin daily, Effexor 150 mg q.h.s., folic acid 1 mg daily, ferrous sulfate 325 mg neymar y, Carbatrol 300 mg b.i.d., calcium 500 mg b.i.d. PLAN: The patient originally was planned to be admitted to an SNF. Ultimately, she and her mother decided that she would be going home with her mother. Plans have been made for her to follow up dnea MICHAEL and have a sponsor and these plans have been established before discharge. Her followup will b e with Dr. Shoemaker of gastroenterology in 2 weeks, Dr. Ahmet Solomon in 2-4 weeks for her pulmonary car e, and Yue John, her primary care provider. This has been explained to the mother in the pr esence of the patient. TIME SPENT: This discharge required 50 minutes, greater than 50% to counseling department chair, coordinate care, and d iscuss matters with the mother for her ongoing care. /[id number]/MODL
== END 2017-01-20 16:20 | disposition home health service (06) | DRG 378 ==
LOC: F3E 18:02 → OBSVTOIN 01-16 16:50
PROVIDERS: ADMIT Student in an Organized Health Care Education/Training Program; ATTEND Internal Medicine Pulmonary Disease
PROC: 0DB98ZX Excision of Duodenum, Via Natural or Artificial Opening Endoscopic, Diagnostic (ICD-10-PCS; principal; 2017-01-16 09:00)
PROC: 0DB68ZX Excision of Stomach, Via Natural or Artificial Opening Endoscopic, Diagnostic (ICD-10-PCS; principal; 2017-01-16 09:00)
DX: K26.0 Acute duodenal ulcer with hemorrhage (principal); K25.0 Acute gastric ulcer with hemorrhage; F10.230 Alcohol dependence with withdrawal, uncomplicated; D50.0 Iron deficiency anemia secondary to blood loss (chronic); J44.1 Chronic obstructive pulmonary disease with (acute) exacerbation; T39.315A Adverse effect of propionic acid derivatives, initial encounter; L97.519 Non-pressure chronic ulcer of other part of right foot with unspecified severity; M21.371 Foot drop, right foot; G40.909 Epilepsy, unspecified, not intractable, without status epilepticus; F32.9 Major depressive disorder, single episode, unspecified; F17.210 Nicotine dependence, cigarettes, uncomplicated; Z87.820 Personal history of traumatic brain injury; Z91.81 History of falling; Z96.643 Presence of artificial hip joint, bilateral; Z88.0 Allergy status to penicillin; Y90.6 Blood alcohol level of 120-199 mg/100 ml
CPT/HCPCS: 85025-PO; 92507-GN; 92523-GN; 97110-GP; 97116-GP; 97162-GP; 97165-GO; 97530-GP; 97535-GO; G0480; J0456; J1956; J2060; J2704; J3475

== ENCOUNTER → 2017-02-27 | Outpatient (CLI) | payer MEDICAID | LOC: FIMAGING 15:52 | PROVIDERS: ATTEND Internal Medicine Infectious Disease | DX: L97.412 Non-pressure chronic ulcer of right heel and midfoot with fat layer exposed (principal); M89.9 Disorder of bone, unspecified ==

== ENCOUNTER → 2017-03-17 | Outpatient (CLI) | payer MEDICAID | LOC: FIMAGING 15:17 | PROVIDERS: ATTEND Internal Medicine Pulmonary Disease | DX: R91.8 Other nonspecific abnormal finding of lung field (principal); J43.9 Emphysema, unspecified; F17.200 Nicotine dependence, unspecified, uncomplicated; S22.41XA Multiple fractures of ribs, right side, initial encounter for closed fracture; S32.010A Wedge compression fracture of first lumbar vertebra, initial encounter for closed fracture; M48.06 Spinal stenosis, lumbar region; E27.9 Disorder of adrenal gland, unspecified ==

== ENCOUNTER 2017-04-22 08:07 | Inpatient (IN) | payer MEDICAID ==
--- NOTE | 2017-03-26 14:57 | CPEKG ---
Heart Rate: 86 RR Interval: 698 P-R Interval: 176 QRSD Interval: 90 QT Interval: 384 QTC Interval: 460 P [place]: 54 QRS [place]: 109 T Wave [place]: 6 EKG Severity - OTHERWISE NORMAL ECG - EKG Impression: SINUS RHYTHM EKG Impression: RIGHT AXIS DEVIATION Electronically Signed By: Will Coyle 26-Mar-2017 20:28:38
[2017-03-26 15:27] LABS: % IMMATURE GRANULYOCYTES 0.6 % (0.0-1.1); ABSOLUTE IMMATURE GRANULOCYTES 0.06 10^3/uL (0.00-0.10); ADD DIFF? NO; ADD MORPH? NO; ADD SCAN? NO; ATYPICAL LYMPHOCYTE FLAG 10 (0-99); FRAGMENT RBC FLAG 0 (0-99); HEMATOCRIT 40.1 % (38.0-47.0); HEMOGLOBIN 13.4 g/dL (12.6-16.3); LEFT SHIFT FLG 0 (0-99); LIPEMIA HEMOLYSIS FLAG 80 (0-99); MEAN CELL HEMOGLOBIN 30.5 pg (27.9-34.1); MEAN CELL HEMOGLOBIN CONCENTR. 33.4 g/dL (32.4-36.7); MEAN CELL VOLUME 91.1 fL (81.5-99.8); MEAN PLATELET VOLUME 10.1 fL (8.7-11.7); PLATELET CLUMPS FLAG 0 (0-99); PLATELET COUNT 324 10^3/uL (150-400); RED CELL DISTRIBUTION WIDTH 13.9 % (11.5-15.2)
--- NOTE | 2017-04-21 17:44 | GHP ---
[f rep st] PREOP HISTORY AND PHYSICAL DATE OF ADMISSION: 04/22/2017 CHIEF COMPLAINT: Right foot. HISTORY OF PRESENT ILLNESS: The patient is a 46-year-old with history of progressive right foot pain, deformity, and ulcerations. She has tried bracing , and multiple times wound management without any success. PAST MEDICAL HISTORY: Positive for diabetes, asthma, depression, GERD, seizures. PAST SURGICAL HISTORY: Positive for 2 hip surgeries. SOCIAL HISTORY: Positive for cigarette smoking of a pack per day. MEDICATIONS: Carbatrol, folic acid, loratadine, QVAR inhaler. ALLERGIES: Penicillin. PHYSICAL EXAMINATION: GENERAL: She is alert and oriented x3, in some distress secondary to her foot. HEENT: Head is normocephalic. Pupils equal, round, reactive to light. Extraocular eye movements intact. NECK: Supple. CHEST: Bilateral mild crackles throughout. HEART: Regular rate and rhythm. No murmurs or gallops. ABDOMEN: Soft, nontender, nondistended. No organomegaly. EXTREMITIES: Right equinovarus deformity. There is an ulceration, which is full thickness with some drainage. ASSESSMENT: 1. Right foot infection. 2. Right equinovarus deformity. PLAN: The patient is scheduled for a below-knee amputation. /[id number]/MODL MTDD
[2017-04-22] MEDS ORDERED: LR 1,000 ML IV ONE (08:44)
[2017-04-22] MEDS ORDERED: LIDOCAINE 1% 2 ML INJ ID PRN (08:44)
[2017-04-22] MEDS ORDERED: CLINDAMYCIN 600 MG/DEXTROSE 50 ML IV ONE (09:33)
--- NOTE | 2017-04-22 09:36 | PDHPUP ---
History & Physical Update H&P update statement: This history and physical update is based on an assessment of the patient which was completed after admission or registration (within 24 hours), but prior to the surgery/procedure. H&P update: no change in patient's condition since H&P completed
[2017-04-22] MEDS ORDERED: MIDAZOLAM 2 MG/2 ML VIAL ONE (09:46)
[2017-04-22] MEDS ORDERED: MIDAZOLAM 2 MG/2 ML VIAL IVP ONE (09:47)
--- NOTE | 2017-04-22 09:49 | PDANEPAE ---
ANE History of Present Illness r foot ulcer, pain ANE Past Medical History - Cardiovascular History Hx Hypertension: No Hx Arrhythmias: No Hx Chest Pain: No Hx Coronary Artery / Peripheral Vascular Disease: No Hx CHF / Valvular Disease: No Hx Palpitations: No - Pulmonary History Hx COPD: Yes Hx Asthma/Reactive Airway Disease: Yes Hx Recent Upper Respiratory Infection: No Hx Oxygen in Use at Home: No Hx Sleep Apnea: Yes Sleep Apnea Screening Result - Last Documented: Positive Pulmonary History Comment: hx of heavy smoking-in process of quitting;4-5 cigs currently. SOB w/walking. - Neurologic History Hx Cerebrovascular Accident: No Hx Seizures: Yes Hx Dementia: No Neurologic History Comment: "brain surgery for epilepsy" helped pt. Last seizure : 2 mos ago. - Endocrine History Hx Diabetes: No - Renal History Hx Renal Disorders: No - Liver History Hx Hepatic Disorders: Yes Hepatic History Comment: states no problems - Neurological & Psychiatric Hx Hx Neurological and Psychiatric Disorders: Yes Neurological / Psychiatric History Comment: low back pain - caused from walking w/ painful R ft. hx scoliosis. on Rx-depression - Cancer History Hx Cancer: No - Congenital Disorder History Hx Congenital Disorders: No - GI History Hx Gastrointestinal Disorders: Yes Gastrointestinal History Comment: hospitalized at [facility] for bleeding ulcers. Stopped drinking alcohol since. Detoxed for 5 days at [facility]. Attends AA. GERD-on Rx - Other Health History Other Health History: R ft pain- intermittent. "whole R side is painful- intermittent. - Chronic Pain History Chronic Pain: Yes (R side of body, low back) - Surgical History Prior Surgeries: "brain surgery for epilepsy 05-20-1996. bilat total hips. L arm ORIF ANE Review of Systems - Exercise capacity METS (RN): 3 METS ANE Patient History - Allergies Allergies/Adverse Reactions: phenytoin sodium [From Dilantin] Allergy (Intermediate, Verified 03/24/17 13:56) facial swelling, drunk feeling phenytoin sodium extended [From Dilantin] Allergy (Intermediate, Verified 13:56) facial swelling, drunk feeling clarithromycin [From Biaxin] Allergy (Mild, Verified 03/24/17 13:56) FACIAL EDEMA Penicillins Allergy (Mild, Verified 03/24/17 13:56) FACIAL EDEMA Sulfa (Sulfonamide Antibiotics) Allergy (Mild, Verified 03/24/17 13:56) FACIAL EDEMA/ HIVES levofloxacin [From Levaquin] Allergy (Verified 03/24/17 13:56) FACIAL EDEMA, DRUNK FEELING - Home Medications Home Medications: Calcium Carbonate [Oyster Shell Calcium 500 mg (*)] 500 mg PO BID 10/30/14 [ Last Taken 04/08/17] Ferrous Sulfate [Ferrous Sulf 325 MG (*)] 325 mg PO DAILY 01/15/17 [Last Taken 04/21/17] Venlafaxine Xr [Effexor Xr] 150 mg PO HS 01/15/17 [Last Taken 04/21/17 12:30] Acetaminophen [Tylenol ES 500 mg (*)] 1,000 mg PO Q8HRS PRN 03/17/17 [Last Taken 04/22/17 06:30] traMADol [Ultram 50 mg (*)] 50 mg PO Q4-6PRN PRN 03/17/17 [Last Taken 04/08/17] - NPO status NPO Since - Liquids (Date): 04/21/17 NPO Since - Liquids (Time): 06:30 NPO Since - Solids (Date): 04/21/17 NPO Since - Solids (Time): 22:30 - Smoking Hx Smoking Status: Heavy smoker ANE Labs/Vital Signs - Labs Result Diagrams: 03/26/17 14:47 04/22/17 09:30 - Vital Signs Blood Pressure: 122/86 Heart Rate: 97 Respiratory Rate: 16 O2 Sat (%): 92 Height: 154.94 cm Weight: 55.338 kg ANE Physical Exam - Airway Neck exam: FROM Mallampati Score: Class 2 Mouth exam: poor dentition - Pulmonary Pulmonary: no respiratory distress - Cardiovascular Cardiovascular: regular rate and rhythym - ASA Status ASA Status: III
--- NOTE | 2017-04-22 09:51 | PDANEPAE ---
Anesthesia PST Note Patient's labs reviewed and patient appropriate for surgery: Yes
[2017-04-22] MEDS ORDERED: ROCURONIUM 50 MG/5 ML VIAL ONE (09:53)
[2017-04-22] MEDS ORDERED: DEXAMETHASONE 4 MG/ML VIAL ONE (09:53)
[2017-04-22] MEDS ORDERED: ONDANSETRON 4 MG/2 ML VIAL ONE (09:53)
[2017-04-22] MEDS ORDERED: PROPOFOL 200 MG/20 ML VIAL ONE (09:54)
[2017-04-22] MEDS ORDERED: HYDROmorphONE/DILAUDID 2 MG/ML INJ ONE (09:54)
[2017-04-22] MEDS ORDERED: fentaNYL 100 MCG/2 ML INJ ONE ×3 (09:54→12:09)
[2017-04-22 09:59] LABS: ANION GAP 15 mEq/L (8-16); CALCIUM 8.8 mg/dL (8.5-10.4); CARBON DIOXIDE 20 mEq/l (22-31); CHLORIDE 108 mEq/L (97-110); CREATININE 0.6 mg/dL (0.6-1.0); GLOMERULAR FILTRATION RATE > 60; GLUCOSE 91 mg/dL (70-100); POTASSIUM 3.7 mEq/L (3.5-5.2); SODIUM 143 mEq/L (134-144)
[2017-04-22] MEDS ORDERED: ONDANSETRON 4 MG/2 ML VIAL IVP PRN (10:19)
[2017-04-22] MEDS ORDERED: LR 500 ML IV PRN (10:19)
[2017-04-22] MEDS ORDERED: PROMETHAZINE HCL 25 MG/ML INJ IVP PRN (10:19)
[2017-04-22] MEDS ORDERED: NALOXONE HCL 0.4 MG/ML INJ IVP PRN (10:19)
--- NOTE | 2017-04-22 12:04 | POSTOPPROG ---
Post Op Note Date of Operation: 04/22/17 Surgeon: Prasad Palmer Anesthesia: GET(General Endotracheal) Pre-op Diagnosis: R foot osteomyelitis, equinocavovarus deformity Post-op Diagnosis: same Procedure: R BKA, Distal tib-fib arthrodesis Inf/Abcess present in the surg proc area at time of surgery?: Yes Depth: Deep Incisional (Fascial) EBL: Minimal Drains: Lamonte Khan
[2017-04-22] MEDS: fentaNYL 100 MCG/2 ML INJ IVP PRN ×2 (12:11→12:21)
[2017-04-22] MEDS ORDERED: LABETALOL HCL 50 MG/10 ML SYR IVP ONE (12:12)
--- NOTE | 2017-04-22 12:13 | POSTANESTH ---
Post Anesthetic Evaluation Cardiovascular Status: Normal, Stable, Tx Hyper/Hypo-tension Respiratory Status: Normal, Stable Level of Consciousness/Mental Status: Can Participate in Eval Pain Control: Inadeq, Add Tx Required Nausea/Vomiting Control: Adequate, Prn Tx Ordered Complications Possibly Related to Anesthesia: None Noted
[2017-04-22] MEDS ORDERED: D5W IV SCH (12:15)
[2017-04-22] MEDS ORDERED: MORPHINE IV SCH (12:15)
[2017-04-22] MEDS ORDERED: HYDROmorphONE/DILAUDID 1 MG/ML SYR ONE (12:36)
[2017-04-22] MEDS: HYDROmorphONE/DILAUDID 1 MG/ML SYR IVP PRN ×4 (12:38→22:39)
[2017-04-22] MEDS ORDERED: diphenhydrAMINE 25 MG CAP PO PRN (13:57)
[2017-04-22] MEDS ORDERED: POLYETHYLENE GLYCOL 3350 17 GM PKT PO PRN (13:58)
[2017-04-22] MEDS ORDERED: BISACODYL 10 MG SUPP PR PRN (13:58)
[2017-04-22] MEDS ORDERED: LACTULOSE 20 GM/30 ML UDCUP PO PRN (13:58)
[2017-04-22] MEDS: oxyCODONE IR 5 MG TAB PO PRN ×3 (14:20→20:49)
[2017-04-22] MEDS: carBAMazepine ER 300 MG CAP PO SCH (20:46)
[2017-04-22] MEDS: CALCIUM CARBONATE 500 MG TAB PO SCH (20:46)
[2017-04-22] MEDS: PANTOPRAZOLE SODIUM 40 MG TAB PO SCH (20:51)
[2017-04-22] MEDS: SENNOSIDES/DOCUSATE SODIUM TAB PO SCH (20:51)
[2017-04-22] MEDS ORDERED: VENLAFAXINE 150 MG PO SCH (21:00)
[2017-04-22] MEDS ORDERED: SALMETER IH SCH (21:00)
[2017-04-22] MEDS ORDERED: FLUTICASONE IH SCH (21:00)
[2017-04-22] MEDS: ACETAMINOPHEN 500 MG TAB PO PRN (22:38)
[2017-04-23] MEDS: oxyCODONE IR 5 MG TAB PO PRN ×5 (00:32→21:24)
--- NOTE | 2017-04-23 06:03 | SOAPPROG ---
SOAP Progress Note Assessment/Plan: Assessment: S/P R BKA Some pain Mary po + U/O cast intact, no D/C Drain intact Plan: OOB/PT Dispo (home vs Rehab vs SNF) pending progress 04/23/17 05:59 Objective: Vital Signs Temp Pulse Resp BP Pulse Ox 36.8 C 80 16 143/84 H 97 04/23/17 00:14 04/23/17 00:14 04/23/17 00:14 04/23/17 00:14 04/23/17 00:14 Laboratory Results 03/26/17 14:47 04/22/17 09:30 04/21/17 04/22/17 04/23/17 05:59 05:59 05:59 Intake Total 2260 Output Total 1840 Balance 420 ICD10 Worksheet Patient Problems: Problems Problem Status Onset Avascular necrosis of the head of femur Active Bronchitis Active Alcohol abuse with intoxication delirium Acute Alcohol abuse, continuous Acute COPD exacerbation Acute Chronic low back pain Acute GI bleed Acute Subdural hematoma, acute Acute
[2017-04-23] MEDS ORDERED: FOLIC ACID 1 MG PO SCH ×2 (09:00)
[2017-04-23] MEDS ORDERED: NON-FORMULARY NEW DRUG (Multivitamins [Multivitamin (*)] 1 EACH) PO SCH (09:00)
[2017-04-23] MEDS ORDERED: FERROUS SULFATE 325 MG PO SCH (09:00)
[2017-04-23] MEDS: CALCIUM CARBONATE 500 MG TAB PO SCH ×2 (09:01→21:21)
[2017-04-23] MEDS: carBAMazepine ER 300 MG CAP PO SCH ×2 (09:02→21:21)
[2017-04-23] MEDS: SENNOSIDES/DOCUSATE SODIUM TAB PO SCH ×2 (09:02→21:23)
[2017-04-23] MEDS: ENOXAPARIN 40 MG/0.4 ML SYR SC SCH (09:04)
[2017-04-23] MEDS: FOLIC ACID 1 MG TAB PO SCH (09:14)
[2017-04-23] MEDS: FERROUS SULFATE 325 MG TAB PO SCH (09:14)
[2017-04-23] MEDS: MULTIVITAMINS 1 EACH TAB PO SCH (09:14)
[2017-04-23] MEDS: PANTOPRAZOLE SODIUM 40 MG TAB PO SCH ×2 (09:15→21:21)
[2017-04-23] MEDS: FLUTICASONE/SALMETER 250/50MCG DISKUS IH SCH ×2 (09:16→22:03)
--- NOTE | 2017-04-23 10:03 | GOP ---
[f rep st] OPERATIVE REPORT DATE OF OPERATION: 04/22/2017 SURGEON: Prasad Palmer MD SPACE CONTROLLER: Jacinta Akhtar PA-C, who was necessary for the patient's surgery. ANESTHESIA: General. PREOPERATIVE DIAGNOSIS: 1. Osteomyelitis, right foot. 2. Right equinocavovarus deformity. POSTOPERATIVE DIAGNOSIS: 1. Osteomyelitis, right foot. 2. Right equinocavovarus deformity. PROCEDURE PERFORMED: 1. Right below knee amputation with initial prosthetic fitting (rigid cast). 2. Right distal tibial-fibula arthrodesis. FINDINGS: ESTIMATED BLOOD LOSS: minimal. INDICATIONS: The patient is a 46-year-old with history of persistent right foot and ankle pain, def ormity, and recurrent wound infections. Patient has undergone prolonged treatments with multiple wo und debridements and antibiotics. She was having continued pain, ulcerations, and deformity with in ability to ambulate. After a thorough discussion regarding the treatment options, including attempt s at limb salvage, , comprehensive correction of her deformity, and bracing versus amputa tion, the patient wished to pursue amputation. She acknowledged she understood the potential risks, including, but not limited to, bleeding, infection, neurovascular damage, bleeding, loss of limb or limb function, malunion, nonunion, need for hardware removal, pain or functional limitations despit e operative treatment, and anesthetic risks. She acknowledged she understood the potential risks, p lanned procedure, and postoperative plan well, and had all questions answered prior to surgery. She gave her consent for the operative procedure. DESCRIPTION OF PROCEDURE: Patient was brought in the operating room. IV antibiotics were administe red. General anesthetic was administered by the anesthesiologist. A tourniquet was placed on her r ight thigh, and the right lower extremity was prepped and draped in standard sterile fashion. After marking the incision and Hilario wrap exsanguination, the tourniquet was inflated to 250. Amputation s tump with a long posterior flap was drawn out. Skin and subcutaneous tissue were sharply incised. Dissection was carried out with the electrocautery unit down to the tibia. The periosteum was refle cted with a periosteal elevator. Dissection was then carried through the anterior compartment muscl e. The fibula was identified and similarly freed of a limited portion of the periosteum. Medially, the saphenous vein was identified and ligated. The tibia and fibula were cut at an equivocal level . The anterior aspect of the tibia was beveled using the saw. The tibial and peroneal neurovascula r structures were identified. The vascular structures were suture ligated with 0 Vicryl and 0 silk suture. The amputation was completed with transection of the posterior aspect of the musculature di stal level. The anterior compartment musculature was removed with the amputation stump. A portion of the amputated tibia was removed. The medial aspect of the fibula and lateral aspect of the tibia were "sanjeev petaled" with a chisel. After pre-drilling the fibula with a 4.0 mm drill bit and the t ibia with a 2.9 mm drill bit, and placing the tibial graft in between the tibia and the fibula, a 4. 0 mm cortical screw was placed in lag fashion from the fibula into the tibia spanning the graft as a distal tib-fib arthrodesis using a modified "ERTL" technique. Tourniquet was deflated. No untowar d bleeding was seen. The stump was then closed. The posterior musculature was reapproximated to th e anterior periosteum with 2-0 Vicryl suture. The subcutaneous tissue was closed with 3-0 Vicryl alvarez ture in an interrupted fashion, and the skin was closed with alternating 3-0 nylon interrupted verti bryan mattress sutures and skin jyoti. Prior to closure, a drain was placed. The wounds were dress ed with sterile Adaptic, 4 x 4, and Kerlix. A well-molded above-knee cast with the knee in extensio n as initial prosthetic fit was applied. The patient was taken to the recovery room extubated in st able condition postoperatively. All sponge, needle, and instrument counts were reported as being co rrect. DRAINS: Lamonte-Khan. COMPLICATIONS: None. PLAN: The patient will be admitted for IV antibiotics, IV analgesics, and gait training. She will be nonweightbearing on her operative extremity. /[id number]/MODL
[2017-04-23] MEDS: HYDROmorphONE/DILAUDID 1 MG/ML SYR IVP PRN ×2 (12:10→19:10)
--- NOTE | 2017-04-23 16:05 | GCON ---
[f rep st] CONSULTATION REFERRING PHYSICIAN: Prasad Palmer MD REASON FOR CONSULTATION: Medical management. HISTORY OF PRESENT ILLNESS: Sayra Hyman is a 46-year-old female with a history of COPD, alcohol abuse, and seizure disorder, who has chronic right foot wound infections. She has progressive right foot pain, deformity, and ulcerations, that were treated by the Infectious Disease team in the outpatient setting. She has tried bracing and multiple trials of wound management without success. She had a chcyv-ihq-mekn amputation on 04/22/2017, for osteomyelitis. She has done well with surgery. She is complaining of some phantom pain, but overall is feeling well. She denies any fever or chills. She is having no chest pain. No shortness of breath. Overall, she is feeling very comfortable and her appetite is good. PAST MEDICAL HISTORY, INCLUDING SURGICAL HISTORY: 1. Status post right mhbbc-yeu-eepr amputation on 04/22/2017. 2. COPD. 3. Alcohol use and abuse, quit drinking 3 months ago. She went to . 4. 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 5. Right footdrop due to right hip replacement. 6. Chronic right foot wound. 7. Avascular necrosis status post bilateral hip replacements. 8. Depression. 9. Left arm surgery. 10. Multiple falls with a history of a frontal intracranial hemorrhage and subdural hematoma. 11. Asthma. ALLERGIES: Phenytoin, clarithromycin, penicillin, sulfa, and Levaquin. HOME MEDICATIONS: Advair 1 puff b.i.d., ferrous sulfate 325 mg daily, calcium carbonate 500 mg p.o. b.i.d., Protonix 40 mg p.o. b.i.d., multivitamin 1 tab daily, folic acid 1 mg daily, Carbatrol 300 mg p.o. b.i.d., Effexor 150 mg p.o. at bedtime, tramadol 50 mg q.4-6 hours p.r.n., and Tylenol 1000 mg q.8 hours p.r.n. FAMILY HISTORY: History of diabetes. No seizure disorders. SOCIAL HISTORY: She lives alone in an apartment. She does have a cat. She is currently not in a relationship. She quit drinking approximately 3 months ago. She has smoked a half a pack to a pack daily for the past 30 years. REVIEW OF SYSTEMS: A 10-point review of systems was performed and was negative other than pertinent positives in HPI and past medical history. PHYSICAL EXAM: GENERAL: The patient is a 46-year-old female, who does not appear to be in any significant distress, but appears to be chronically ill. VITAL SIGNS: Blood pressure is 158/95, heart rate is 62, respiratory rate is 13 , O2 sats on 4 L are 99%, temperature is 37.1 Celsius. EYES: Pupils are equal and reactive. ENT: Normal ears, hearing intact. NECK: Trachea is midline. CARDIOVASCULAR: She is in a regular rate and rhythm. No murmurs, rubs, or gallops noted. CHEST/LUNGS: She has normal respiratory effort with scattered expiratory wheezes scattered throughout. ABDOMEN: Soft, nontender. SKIN: No rashes or ulcer. She has a akrui-hmp-mjor amputation with a hard cast in place on the right leg. She has a palpable pulse on the left foot. PSYCHIATRIC: She is alert and oriented. Normal mood and affect. Normal judgment, insight, and normal memory. DATA REVIEWED: A chemistry panel was performed, shows a sodium of 143, potassium of 3.7, chloride of 108, BUN of 9, creatinine of 0.6, glucose of 91. ASSESSMENT AND PLAN: 1. Status post right iunle-lft-nssb amputation. Will have Physical Therapy and Occupational Therapy work with her. She lives alone. She will likely need a nursing home facility or inpatient rehabilitation to get strong enough to return back to her home. 2. Tachycardia. Noted on admission. This has since resolved, will continue monitoring. 3. Underlying seizure disorder. Resumed her home medication. Will hold tramadol, because it lowers seizure threshold. 4. Depression. Effexor has been resumed. 5. Asthma. We will resume her inhaler. 6. Chronic obstructive pulmonary disease. Will provide nebulizer treatments. 7. DVT prophylaxis, on low molecular weight heparin. 8. Code status: Full. 9. Length of stay: She will require greater than a 2-midnight stay for treatment and close monitoring. Thank you for this consultation. The hospitalist team will continue to follow her during her stay. /[id number]/MODL MTDD
[2017-04-23] MEDS ORDERED: VENLAFAXINE XR 150 MG CAP PO SCH (21:00)
[2017-04-23] MEDS: ACETAMINOPHEN 500 MG TAB PO PRN (22:05)
[2017-04-24] MEDS: oxyCODONE IR 5 MG TAB PO PRN ×5 (02:43→22:42)
[2017-04-24 05:25] LABS: % IMMATURE GRANULYOCYTES 0.2 % (0.0-1.1); ABSOLUTE IMMATURE GRANULOCYTES 0.02 10^3/uL (0.00-0.10); ADD DIFF? NO; ADD MORPH? NO; ADD SCAN? NO; ATYPICAL LYMPHOCYTE FLAG 0 (0-99); FRAGMENT RBC FLAG 0 (0-99); HEMATOCRIT 35.6 % (38.0-47.0); HEMOGLOBIN 12.2 g/dL (12.6-16.3); LEFT SHIFT FLG 0 (0-99); LIPEMIA HEMOLYSIS FLAG 90 (0-99); MEAN CELL HEMOGLOBIN 31.9 pg (27.9-34.1); MEAN CELL HEMOGLOBIN CONCENTR. 34.3 g/dL (32.4-36.7); MEAN PLATELET VOLUME 9.8 fL (8.7-11.7); PLATELET CLUMPS FLAG 0 (0-99); PLATELET COUNT 160 10^3/uL (150-400); RED BLOOD CELL COUNT 3.83 10^6/uL (4.18-5.33); RED CELL DISTRIBUTION WIDTH 14.2 % (11.5-15.2)
[2017-04-24 05:55] LABS: ALANINE AMINOTRANSFERASE 29 IU/L (9-52); ALBUMIN 3.7 g/dL (3.5-5.0); ALKALINE PHOSPHATASE 93 IU/L (38-126); ANION GAP 9 mEq/L (8-16); ASPARTATE AMINOTRANSFERASE 23 IU/L (14-46); CARBON DIOXIDE 27 mEq/l (22-31); CHLORIDE 104 mEq/L (97-110); CREATININE 0.5 mg/dL (0.6-1.0); GLOMERULAR FILTRATION RATE > 60; GLUCOSE 100 mg/dL (70-100); POTASSIUM 3.7 mEq/L (3.5-5.2); SODIUM 140 mEq/L (134-144); TOTAL PROTEIN 7.9 g/dL (6.3-8.2)
[2017-04-24] MEDS: FLUTICASONE/SALMETER 250/50MCG DISKUS IH SCH ×2 (08:59→22:40)
[2017-04-24] MEDS: ENOXAPARIN 40 MG/0.4 ML SYR SC SCH (09:39)
[2017-04-24] MEDS: SENNOSIDES/DOCUSATE SODIUM TAB PO SCH ×2 (09:39→20:29)
[2017-04-24] MEDS: CALCIUM CARBONATE 500 MG TAB PO SCH ×2 (09:40→20:31)
[2017-04-24] MEDS: FOLIC ACID 1 MG TAB PO SCH (09:40)
[2017-04-24] MEDS: carBAMazepine ER 300 MG CAP PO SCH ×2 (09:40→20:29)
[2017-04-24] MEDS: MULTIVITAMINS 1 EACH TAB PO SCH (09:40)
[2017-04-24] MEDS: PANTOPRAZOLE SODIUM 40 MG TAB PO SCH ×2 (09:40→20:31)
[2017-04-24] MEDS: FERROUS SULFATE 325 MG TAB PO SCH (09:43)
--- NOTE | 2017-04-24 15:53 | SOAPPROG ---
SOAP Progress Note Assessment/Plan: Assessment: S/p R BKA 1. 2 cm full thickness ulceration overlying the anterior lateral hindfoot-- right foot 2. Rigid equinovarus deformity-- right foot seizure disorder: continue carbamazepine. pain: well controlled proph: LMWH DC after PT/OT eval and treat and pain controlled with PT meds Plan 04/24/17 16:34 04/24/17 17:06 04/24/17 17:07 Subjective: Sayra is doing well, lying comfortably in bed when I saw her this morning. She reports pain that can reach a max of 5-6 out of 10. She has been starting to experience phantom pain as well. She sat in the chair yesterday though but not seen PT/OT. No BM since surgery. Last cigarette was the morning of her surgery. Her hope is to live temporarily in [place] with her mom upon discharge. Her home is at [facility] apartments. Objective: Vital Signs Temp Pulse Resp BP Pulse Ox 37.2 C 83 14 119/77 91 L 04/24/17 11:28 04/24/17 11:28 04/24/17 11:28 04/24/17 11:28 04/24/17 11:28 Laboratory Results 04/24/17 05:15 04/24/17 05:15 04/23/17 04/24/17 04/25/17 05:59 05:59 05:59 Intake Total 2260 650 Output Total 1840 460 Balance 420 190 Sensation intact Skin warm, dry Cast clean, dry, in place over R BKA ICD10 Worksheet Patient Problems: Problems Problem Status Onset Avascular necrosis of the head of femur Active Bronchitis Active Alcohol abuse with intoxication delirium Acute Alcohol abuse, continuous Acute COPD exacerbation Acute Chronic low back pain Acute GI bleed Acute Subdural hematoma, acute Acute
--- NOTE | 2017-04-24 16:06 | HOSPPROG ---
Hospitalist Progress Note Assessment/Plan: 46 yo F w BKA for non healing LE wound seizure disorder: continue carbamazepine. this may help w phantom pain pain: well controlled agree w scheduled tylenol alcohol: admits alcohol somewhat recently but no signs withdrawal proph: lmwh as you are Subjective: pain well controlled. denies alcohol withdrawal sx. no bm Objective: Vital Signs Temp Pulse Resp BP Pulse Ox 37.2 C 83 14 119/77 91 L 04/24/17 11:28 04/24/17 11:28 04/24/17 11:28 04/24/17 11:28 04/24/17 11:28 Laboratory Results 04/24/17 05:15 04/24/17 05:15 04/23/17 04/24/17 04/25/17 05:59 05:59 05:59 Intake Total 2260 650 Output Total 1840 460 Balance 420 190 - Physical Exam Constitutional: no apparent distress, appears nourished Eyes: PERRL, anicteric sclera Ears, Nose, Mouth, Throat: moist mucous membranes, hearing normal Cardiovascular: regular rate and rhythym, no murmur, rub, or gallop Respiratory: no respiratory distress, no rales or rhonchi Gastrointestinal: normoactive bowel sounds, soft, non-tender abdomen Genitourinary: no bladder fullness, No austin in urethra Skin: warm Musculoskeletal: full muscle strength ICD10 Worksheet Patient Problems: Problems Problem Status Onset Avascular necrosis of the head of femur Active Bronchitis Active Alcohol abuse with intoxication delirium Acute Alcohol abuse, continuous Acute COPD exacerbation Acute Chronic low back pain Acute GI bleed Acute Subdural hematoma, acute Acute
[2017-04-24] MEDS: HYDROmorphONE/DILAUDID 1 MG/ML SYR IVP PRN (17:16)
[2017-04-24] MEDS: MAGNESIUM HYDROXIDE 30 ML UDCUP PO PRN (17:23)
[2017-04-24] MEDS: NICOTINE 21 MG/24 HR PATCH TD SCH (17:43)
[2017-04-24] MEDS: VENLAFAXINE XR 150 MG CAP PO SCH (20:31)
[2017-04-24] MEDS ORDERED: VENLAFAXINE XR 75 MG CAP PO SCH (21:00)
[2017-04-25] MEDS: oxyCODONE IR 5 MG TAB PO PRN ×5 (03:20→22:16)
--- NOTE | 2017-04-25 06:12 | SOAPPROG ---
SOAP Progress Note Assessment/Plan: Assessment: S/P R BKA Some pain Mary po + U/O cast intact, no D/C Drain intact Plan: OOB/PT Dispo (home vs Rehab vs SNF) pending progress 04/23/17 05:59 04/25/17 06:11 Pain OK gradual progression with PT Mary diet Cast intact, well fitting Drain D/Kenn Probable SNF placement when ready Objective: Vital Signs Temp Pulse Resp BP Pulse Ox 36.9 C 88 16 117/69 94 04/25/17 03:18 04/25/17 03:18 04/25/17 03:18 04/25/17 03:18 04/25/17 03:18 Laboratory Results 04/24/17 05:15 04/24/17 05:15 04/24/17 04/25/17 04/26/17 05:59 05:59 05:59 Intake Total 650 1700 Output Total 460 5 Balance 190 1695 ICD10 Worksheet Patient Problems: Problems Problem Status Onset Avascular necrosis of the head of femur Active Bronchitis Active Alcohol abuse with intoxication delirium Acute Alcohol abuse, continuous Acute COPD exacerbation Acute Chronic low back pain Acute GI bleed Acute Subdural hematoma, acute Acute
--- NOTE | 2017-04-25 06:14 | PDIAF ---
- Diagnosis Code Status: Full Code - Medication Management Discharge Medications: Medications to Continue on Transfer Multivitamins [Multivitamin (*)] 1 each PO DAILY #0 tab 05/31/14 [Last Taken 01/20] carBAMazepine ER [Carbatrol (*)] 300 mg PO BID #60 cap 05/31/14 [Last Taken 06:30] Calcium Carbonate [Oyster Shell Calcium 500 mg (*)] 500 mg PO BID 10/30/14 [ Last Taken 04/08/17] Folic Acid [Folic Acid 1 MG (*)] 1 mg PO DAILY #0 tab 11/18/14 [Last Taken 04/08] Ferrous Sulfate [Ferrous Sulf 325 MG (*)] 325 mg PO DAILY 01/15/17 [Last Taken 04/21/17] Fluticasone/Salmeter 250/50Mcg [Advair 250/50 (*)] 1 puffs IH BID #1 disk [Last Taken 04/21/17 18:30] Pantoprazole Sodium [Protonix 40mg (*)] 40 mg PO BID #60 tab 01/20/17 [Last Taken 04/22/17 06:30] Acetaminophen [Tylenol ES 500 mg (*)] 1,000 mg PO Q8HRS PRN 03/17/17 [Last Taken 04/22/17 06:30] traMADol [Ultram 50 mg (*)] 50 mg PO Q4-6PRN PRN 03/17/17 [Last Taken 04/08/17] Venlafaxine Xr [Effexor Xr] 150 mg PO HS 04/24/17 [Last Taken Unknown] Discharge Medications: Refer to the Discharge Home Medication list for PRN reason. - Orders Diet Recommendation: no restrictions on diet Wound Care Instructions: Cast to stay in place Activity/Weight Bearing Restrictions: Non weight bearing right lower extremity - Follow Up Care Current Providers and Referrals: Christin John MD [Primary Care Provider] - Prasad Palmer MD [Medical Doctor] -
[2017-04-25] MEDS: FLUTICASONE/SALMETER 250/50MCG DISKUS IH SCH ×2 (09:13→22:13)
[2017-04-25] MEDS: carBAMazepine ER 300 MG CAP PO SCH ×2 (09:56→20:36)
[2017-04-25] MEDS: NICOTINE 21 MG/24 HR PATCH TD SCH (09:56)
[2017-04-25] MEDS: MULTIVITAMINS 1 EACH TAB PO SCH (09:57)
[2017-04-25] MEDS: ENOXAPARIN 40 MG/0.4 ML SYR SC SCH (09:57)
[2017-04-25] MEDS: SENNOSIDES/DOCUSATE SODIUM TAB PO SCH ×2 (09:57→20:36)
[2017-04-25] MEDS: PANTOPRAZOLE SODIUM 40 MG TAB PO SCH ×2 (09:57→20:36)
[2017-04-25] MEDS: FERROUS SULFATE 325 MG TAB PO SCH (09:57)
[2017-04-25] MEDS: CALCIUM CARBONATE 500 MG TAB PO SCH ×2 (09:57→20:36)
[2017-04-25] MEDS: FOLIC ACID 1 MG TAB PO SCH (09:57)
[2017-04-25] MEDS: POLYETHYLENE GLYCOL 3350 17 GM PKT PO SCH (09:58)
--- NOTE | 2017-04-25 15:56 | HOSPPROG ---
Hospitalist Progress Note Assessment/Plan: 46 yo F w BKA for non healing LE wound seizure disorder: continue carbamazepine. this may help w phantom pain phantom pain: add neurontin pain: well controlled agree w scheduled tylenol alcohol: admits alcohol somewhat recently but no signs withdrawal proph: lmwh as you are Subjective: eating well. moved bowels. still w phantom pain Objective: Vital Signs Temp Pulse Resp BP Pulse Ox 36.9 C 80 16 113/66 99 04/25/17 15:06 04/25/17 15:06 04/25/17 15:06 04/25/17 15:06 04/25/17 15:06 Laboratory Results 04/24/17 05:15 04/24/17 05:15 04/24/17 04/25/17 04/26/17 05:59 05:59 05:59 Intake Total 650 1700 Output Total 460 5 Balance 190 1695 - Physical Exam Constitutional: no apparent distress, appears nourished Eyes: PERRL, anicteric sclera Ears, Nose, Mouth, Throat: moist mucous membranes, hearing normal Cardiovascular: regular rate and rhythym, no murmur, rub, or gallop Respiratory: no respiratory distress, no rales or rhonchi Gastrointestinal: normoactive bowel sounds, soft, non-tender abdomen Genitourinary: no bladder fullness, No austin in urethra Skin: warm, normal color Musculoskeletal: full muscle strength, no muscle tenderness Neurologic: AAOx3 ICD10 Worksheet Patient Problems: Problems Problem Status Onset Avascular necrosis of the head of femur Active Bronchitis Active Alcohol abuse with intoxication delirium Acute Alcohol abuse, continuous Acute COPD exacerbation Acute Chronic low back pain Acute GI bleed Acute Subdural hematoma, acute Acute
[2017-04-25] MEDS: GABAPENTIN 100 MG CAP PO SCH ×2 (17:20→22:13)
[2017-04-25] MEDS: VENLAFAXINE XR 150 MG CAP PO SCH (20:36)
[2017-04-26] MEDS: oxyCODONE IR 5 MG TAB PO PRN ×5 (06:07→23:55)
[2017-04-26] MEDS: MAGNESIUM HYDROXIDE 30 ML UDCUP PO PRN (06:10)
[2017-04-26] MEDS: FLUTICASONE/SALMETER 250/50MCG DISKUS IH SCH ×2 (09:37→22:24)
[2017-04-26] MEDS: PANTOPRAZOLE SODIUM 40 MG TAB PO SCH ×2 (09:56→20:02)
[2017-04-26] MEDS: MULTIVITAMINS 1 EACH TAB PO SCH (09:56)
[2017-04-26] MEDS: FOLIC ACID 1 MG TAB PO SCH (09:56)
[2017-04-26] MEDS: FERROUS SULFATE 325 MG TAB PO SCH (09:56)
[2017-04-26] MEDS: NICOTINE 21 MG/24 HR PATCH TD SCH (09:57)
[2017-04-26] MEDS: POLYETHYLENE GLYCOL 3350 17 GM PKT PO SCH ×2 (09:57→20:02)
[2017-04-26] MEDS: GABAPENTIN 100 MG CAP PO SCH (09:57)
[2017-04-26] MEDS: carBAMazepine ER 300 MG CAP PO SCH ×2 (09:57→20:02)
[2017-04-26] MEDS: CALCIUM CARBONATE 500 MG TAB PO SCH ×2 (09:57→20:02)
[2017-04-26] MEDS: SENNOSIDES/DOCUSATE SODIUM TAB PO SCH ×2 (09:57→20:02)
[2017-04-26] MEDS: ENOXAPARIN 40 MG/0.4 ML SYR SC SCH (09:58)
[2017-04-26] MEDS ORDERED: ALBUTEROL 200 PUFFS/18 GM MDI IH PRN (13:52)
--- NOTE | 2017-04-26 13:55 | HOSPPROG ---
Hospitalist Progress Note Assessment/Plan: 46 yo F w BKA for non healing LE wound seizure disorder: continue carbamazepine. this may help w phantom pain phantom pain: add neurontin; increase todau constipation: increase miralax to bid pain: well controlled agree w scheduled tylenol alcohol: admits alcohol somewhat recently but no signs withdrawal proph: lmwh as you are Subjective: pain improved w gabapentin although still room for improvement. moving bowels Objective: Vital Signs Temp Pulse Resp BP Pulse Ox 37.6 C 83 16 118/74 93 04/26/17 08:00 04/26/17 08:00 04/26/17 08:00 04/26/17 08:00 04/26/17 08:00 Laboratory Results 04/24/17 05:15 04/24/17 05:15 04/25/17 04/26/17 04/27/17 05:59 05:59 05:59 Intake Total 1700 1900 Output Total 5 Balance 1695 1900 - Physical Exam Constitutional: no apparent distress, appears nourished Eyes: PERRL, anicteric sclera Ears, Nose, Mouth, Throat: moist mucous membranes, hearing normal, ears appear normal Cardiovascular: regular rate and rhythym, no murmur, rub, or gallop Respiratory: no respiratory distress, no rales or rhonchi Gastrointestinal: normoactive bowel sounds, soft, non-tender abdomen Genitourinary: no bladder fullness, No austin in urethra Skin: warm, normal color Musculoskeletal: full muscle strength Neurologic: AAOx3 ICD10 Worksheet Patient Problems: Problems Problem Status Onset Avascular necrosis of the head of femur Active Bronchitis Active Alcohol abuse with intoxication delirium Acute Alcohol abuse, continuous Acute COPD exacerbation Acute Chronic low back pain Acute GI bleed Acute Subdural hematoma, acute Acute
--- NOTE | 2017-04-26 15:42 | SOAPPROG ---
SOAP Progress Note Assessment/Plan: Assessment: S/P R BKA Some pain Mary po + U/O cast intact, no D/C Drain intact Plan: OOB/PT Dispo (home vs Rehab vs SNF) pending progress 04/23/17 05:59 04/25/17 06:11 Pain OK gradual progression with PT Mary diet Cast intact, well fitting Drain D/Kenn Probable SNF placement when ready 04/26/17 15:41 Pain tolerable on po meds up with PT cast intact - slightly loose No D/C Con't OOB/PT Dispo pending Objective: Vital Signs Temp Pulse Resp BP Pulse Ox 36.6 C 83 16 101/67 96 04/26/17 15:24 04/26/17 15:24 04/26/17 15:24 04/26/17 15:24 04/26/17 15:24 Laboratory Results 04/24/17 05:15 04/24/17 05:15 04/25/17 04/26/17 04/27/17 05:59 05:59 05:59 Intake Total 1700 1900 Output Total 5 500 Balance 1695 1900 -500 ICD10 Worksheet Patient Problems: Problems Problem Status Onset Avascular necrosis of the head of femur Active Bronchitis Active Alcohol abuse with intoxication delirium Acute Alcohol abuse, continuous Acute COPD exacerbation Acute Chronic low back pain Acute GI bleed Acute Subdural hematoma, acute Acute
[2017-04-26] MEDS: GABAPENTIN 300 MG CAP PO SCH ×2 (17:08→22:32)
[2017-04-26] MEDS: VENLAFAXINE XR 150 MG CAP PO SCH (20:02)
[2017-04-26] MEDS: ACETAMINOPHEN 500 MG TAB PO PRN (22:32)
[2017-04-27] MEDS: oxyCODONE IR 5 MG TAB PO PRN ×3 (05:45→20:35)
[2017-04-27] MEDS: FLUTICASONE/SALMETER 250/50MCG DISKUS IH SCH ×2 (08:43→20:45)
[2017-04-27] MEDS: NICOTINE 21 MG/24 HR PATCH TD SCH (09:53)
[2017-04-27] MEDS: FOLIC ACID 1 MG TAB PO SCH (09:55)
[2017-04-27] MEDS: FERROUS SULFATE 325 MG TAB PO SCH (09:55)
[2017-04-27] MEDS: MULTIVITAMINS 1 EACH TAB PO SCH (09:55)
[2017-04-27] MEDS: PANTOPRAZOLE SODIUM 40 MG TAB PO SCH ×2 (09:56→20:34)
[2017-04-27] MEDS: ENOXAPARIN 40 MG/0.4 ML SYR SC SCH (09:56)
[2017-04-27] MEDS: CALCIUM CARBONATE 500 MG TAB PO SCH ×2 (09:56→20:34)
[2017-04-27] MEDS: GABAPENTIN 300 MG CAP PO SCH ×3 (09:56→22:34)
[2017-04-27] MEDS: POLYETHYLENE GLYCOL 3350 17 GM PKT PO SCH ×2 (09:56→20:34)
[2017-04-27] MEDS: carBAMazepine ER 300 MG CAP PO SCH ×2 (09:56→20:35)
[2017-04-27] MEDS: SENNOSIDES/DOCUSATE SODIUM TAB PO SCH ×2 (09:57→20:34)
--- NOTE | 2017-04-27 12:20 | HOSPPROG ---
Hospitalist Progress Note Assessment/Plan: 46 yo F w BKA for non healing LE wound seizure disorder: continue carbamazepine. this may help w phantom pain phantom pain: neurontin at 300 tid would keep there constipation: increase miralax to bid suppository today pain: well controlled agree w scheduled tylenol alcohol: admits alcohol somewhat recently but no signs withdrawal proph: lmwh as you are Subjective: pain improved w increased neurontin. constipated Objective: Vital Signs Temp Pulse Resp BP Pulse Ox 37.0 C 72 16 110/78 94 04/27/17 00:00 04/27/17 08:47 04/27/17 08:47 04/27/17 00:00 04/27/17 08:47 Laboratory Results 04/24/17 05:15 04/24/17 05:15 04/26/17 04/27/17 04/28/17 05:59 05:59 05:59 Intake Total 1900 1563 Output Total 950 Balance 1900 613 - Physical Exam Constitutional: no apparent distress, appears nourished Eyes: PERRL, anicteric sclera Ears, Nose, Mouth, Throat: moist mucous membranes, hearing normal Cardiovascular: regular rate and rhythym, no murmur, rub, or gallop Respiratory: no respiratory distress, no rales or rhonchi Gastrointestinal: normoactive bowel sounds, soft, non-tender abdomen Genitourinary: No austin in urethra Skin: warm, normal color Musculoskeletal: full muscle strength Neurologic: AAOx3 ICD10 Worksheet Patient Problems: Problems Problem Status Onset Avascular necrosis of the head of femur Active Bronchitis Active Alcohol abuse with intoxication delirium Acute Alcohol abuse, continuous Acute COPD exacerbation Acute Chronic low back pain Acute GI bleed Acute Subdural hematoma, acute Acute
--- NOTE | 2017-04-27 16:16 | SOAPPROG ---
SOAP Progress Note Assessment/Plan: Assessment: S/P R BKA Some pain Mary po + U/O cast intact, no D/C Drain intact Plan: OOB/PT Dispo (home vs Rehab vs SNF) pending progress 04/23/17 05:59 04/25/17 06:11 Pain OK gradual progression with PT Mary diet Cast intact, well fitting Drain D/Kenn Probable SNF placement when ready 04/26/17 15:41 Pain tolerable on po meds up with PT cast intact - slightly loose No D/C Con't OOB/PT Dispo pending 04/27/17 16:14 Pain con't to improve. Mobility improving Cast intact, still fitting adequately Plan: Con't PT, Poss Dispo tomorrow. Hospitalist input/care appreciated Objective: Vital Signs Temp Pulse Resp BP Pulse Ox 37.0 C 72 16 110/78 94 04/27/17 00:00 04/27/17 08:47 04/27/17 08:47 04/27/17 00:00 04/27/17 08:47 Laboratory Results 04/24/17 05:15 04/24/17 05:15 04/26/17 04/27/17 04/28/17 05:59 05:59 05:59 Intake Total 1900 1563 Output Total 950 Balance 1900 613 ICD10 Worksheet Patient Problems: Problems Problem Status Onset Avascular necrosis of the head of femur Active Bronchitis Active Alcohol abuse with intoxication delirium Acute Alcohol abuse, continuous Acute COPD exacerbation Acute Chronic low back pain Acute GI bleed Acute Subdural hematoma, acute Acute
[2017-04-27] MEDS: ACETAMINOPHEN 500 MG TAB PO PRN ×2 (16:41→22:34)
[2017-04-27] MEDS: VENLAFAXINE XR 150 MG CAP PO SCH (20:35)
[2017-04-28] MEDS: oxyCODONE IR 5 MG TAB PO PRN ×5 (01:28→22:51)
--- NOTE | 2017-04-28 06:25 | SOAPPROG ---
SOAP Progress Note Assessment/Plan: Assessment: S/P R BKA Some pain Mary po + U/O cast intact, no D/C Drain intact Plan: OOB/PT Dispo (home vs Rehab vs SNF) pending progress 04/23/17 05:59 04/25/17 06:11 Pain OK gradual progression with PT Mary diet Cast intact, well fitting Drain D/Kenn Probable SNF placement when ready 04/26/17 15:41 Pain tolerable on po meds up with PT cast intact - slightly loose No D/C Con't OOB/PT Dispo pending 04/27/17 16:14 Pain con't to improve. Mobility improving Cast intact, still fitting adequately Plan: Con't PT, Poss Dispo tomorrow. Hospitalist input/care appreciated 04/28/17 06:23 Con't to make improvement Pain tolerable Progressing with PT Cast intact able to perform leg raise Plan: Provisional D/C if facility available Objective: Vital Signs Temp Pulse Resp BP Pulse Ox 36.9 C 88 16 118/73 91 L 04/27/17 23:32 04/27/17 23:32 04/27/17 23:32 04/27/17 23:32 04/27/17 23:32 Laboratory Results 04/24/17 05:15 04/24/17 05:15 04/27/17 04/28/17 04/29/17 05:59 05:59 05:59 Intake Total 1563 400 Output Total 950 350 Balance 613 50 ICD10 Worksheet Patient Problems: Problems Problem Status Onset Avascular necrosis of the head of femur Active Bronchitis Active Alcohol abuse with intoxication delirium Acute Alcohol abuse, continuous Acute COPD exacerbation Acute Chronic low back pain Acute GI bleed Acute Subdural hematoma, acute Acute
[2017-04-28] MEDS: SENNOSIDES/DOCUSATE SODIUM TAB PO SCH ×2 (08:28→22:50)
[2017-04-28] MEDS: ENOXAPARIN 40 MG/0.4 ML SYR SC SCH (08:28)
[2017-04-28] MEDS: POLYETHYLENE GLYCOL 3350 17 GM PKT PO SCH ×2 (08:28→22:49)
[2017-04-28] MEDS: NICOTINE 21 MG/24 HR PATCH TD SCH (08:29)
[2017-04-28] MEDS: carBAMazepine ER 300 MG CAP PO SCH ×2 (08:29→22:51)
[2017-04-28] MEDS: CALCIUM CARBONATE 500 MG TAB PO SCH ×2 (08:29→22:51)
[2017-04-28] MEDS: MULTIVITAMINS 1 EACH TAB PO SCH (08:29)
[2017-04-28] MEDS: FOLIC ACID 1 MG TAB PO SCH (08:29)
[2017-04-28] MEDS: PANTOPRAZOLE SODIUM 40 MG TAB PO SCH ×2 (08:29→22:51)
[2017-04-28] MEDS: GABAPENTIN 300 MG CAP PO SCH ×3 (08:29→22:51)
[2017-04-28] MEDS: FERROUS SULFATE 325 MG TAB PO SCH (08:29)
[2017-04-28] MEDS: FLUTICASONE/SALMETER 250/50MCG DISKUS IH SCH ×2 (10:32→20:48)
--- NOTE | 2017-04-28 13:50 | HOSPPROG ---
Hospitalist Progress Note Assessment/Plan: DIAGNOSES, PLANS: #S/P BKA for chronic nonhealing foot infections/deformities phantom pain: neurontin at 300 tid would keep there #seizure disorder: continue carbamazepine. this may help w phantom pain pain: overall reasonably well controlled agree w scheduled tylenol alcohol: admits alcohol somewhat recently -still no signs withdrawal SUBJECTIVE: she has some mild phantom limb pain a lot better on neurontin no other discomforts eating ok not sob OBJECTIVE: vitals: stable exam: alert oriented, relaxed skin warm dry resps easy lungs cleawr heart reg R leg in cast, looks ok iv site good Objective: Vital Signs Temp Pulse Resp BP Pulse Ox 36.4 C 80 16 96/61 L 94 04/28/17 07:42 04/28/17 10:33 04/28/17 10:33 04/28/17 07:42 04/28/17 10:33 Laboratory Results 04/24/17 05:15 04/24/17 05:15 04/27/17 04/28/17 04/29/17 06:59 06:59 06:59 Intake Total 1563 750 300 Output Total 950 750 Balance 613 0 300 ICD10 Worksheet Patient Problems: Problems Problem Status Onset Avascular necrosis of the head of femur Active Bronchitis Active Alcohol abuse with intoxication delirium Acute Alcohol abuse, continuous Acute COPD exacerbation Acute Chronic low back pain Acute GI bleed Acute Subdural hematoma, acute Acute
[2017-04-28] MEDS: ACETAMINOPHEN 500 MG TAB PO PRN (16:03)
[2017-04-28] MEDS: ACETAMINOPHEN 325 MG TAB PO PRN (22:49)
[2017-04-28] MEDS: VENLAFAXINE XR 150 MG CAP PO SCH (22:50)
[2017-04-29] MEDS: oxyCODONE IR 5 MG TAB PO PRN ×4 (05:14→22:07)
[2017-04-29] MEDS: NICOTINE 21 MG/24 HR PATCH TD SCH (09:58)
[2017-04-29] MEDS: POLYETHYLENE GLYCOL 3350 17 GM PKT PO SCH ×2 (09:59→21:37)
[2017-04-29] MEDS: ENOXAPARIN 40 MG/0.4 ML SYR SC SCH (09:59)
[2017-04-29] MEDS: GABAPENTIN 300 MG CAP PO SCH ×3 (10:00→21:37)
[2017-04-29] MEDS: FOLIC ACID 1 MG TAB PO SCH (10:00)
[2017-04-29] MEDS: carBAMazepine ER 300 MG CAP PO SCH ×2 (10:00→22:04)
[2017-04-29] MEDS: MULTIVITAMINS 1 EACH TAB PO SCH (10:00)
[2017-04-29] MEDS: CALCIUM CARBONATE 500 MG TAB PO SCH ×2 (10:00→21:37)
[2017-04-29] MEDS: PANTOPRAZOLE SODIUM 40 MG TAB PO SCH ×2 (10:00→21:36)
[2017-04-29] MEDS: SENNOSIDES/DOCUSATE SODIUM TAB PO SCH ×2 (10:00→21:37)
[2017-04-29] MEDS: FLUTICASONE/SALMETER 250/50MCG DISKUS IH SCH ×2 (10:06→22:15)
[2017-04-29] MEDS: FERROUS SULFATE 325 MG TAB PO SCH (10:06)
--- NOTE | 2017-04-29 18:12 | HOSPPROG ---
Hospitalist Progress Note Assessment/Plan: DIAGNOSES, PLANS: #S/P BKA for chronic nonhealing foot infections/deformities phantom pain: neurontin at 300 tid as well as her carbamazepine Cymbalta could be added over time if she continues to have significant trouble with this pain #seizure disorder: continue carbamazepine. this may help w phantom pain pain: overall reasonably well controlled agree w scheduled tylenol alcohol: admits alcohol somewhat recently -still no signs withdrawal From an internal medicine standpoint she is stable for discharge SUBJECTIVE: doing well overall with pain control, no shortness of breath, fever symptoms, nausea or other discomforts OBJECTIVE: vitals: stable exam: alert oriented, relaxed skin warm dry resps easy lungs clear heart reg R leg in cast, looks ok iv site good Objective: Vital Signs Temp Pulse Resp BP Pulse Ox 36.9 C 76 13 128/74 H 92 04/29/17 15:44 04/29/17 15:44 04/29/17 15:44 04/29/17 15:44 04/29/17 15:44 Laboratory Results 04/24/17 05:15 04/24/17 05:15 04/28/17 04/29/17 04/30/17 06:59 06:59 06:59 Intake Total 750 300 Output Total 750 600 Balance 0 -300 ICD10 Worksheet Patient Problems: Problems Problem Status Onset Avascular necrosis of the head of femur Active Bronchitis Active Alcohol abuse with intoxication delirium Acute Alcohol abuse, continuous Acute COPD exacerbation Acute Chronic low back pain Acute GI bleed Acute Subdural hematoma, acute Acute
[2017-04-29] MEDS: VENLAFAXINE XR 150 MG CAP PO SCH (21:37)
--- NOTE | 2017-04-30 06:10 | SOAPPROG ---
SOAP Progress Note Assessment/Plan: Assessment: S/P R BKA Some pain Mary po + U/O cast intact, no D/C Drain intact Plan: OOB/PT Dispo (home vs Rehab vs SNF) pending progress 04/23/17 05:59 04/25/17 06:11 Pain OK gradual progression with PT Mary diet Cast intact, well fitting Drain D/Kenn Probable SNF placement when ready 04/26/17 15:41 Pain tolerable on po meds up with PT cast intact - slightly loose No D/C Con't OOB/PT Dispo pending 04/27/17 16:14 Pain con't to improve. Mobility improving Cast intact, still fitting adequately Plan: Con't PT, Poss Dispo tomorrow. Hospitalist input/care appreciated 04/28/17 06:23 Con't to make improvement Pain tolerable Progressing with PT Cast intact able to perform leg raise Plan: Provisional D/C if facility available 04/30/17 06:08 Status unchanged Con't to progress with PT Pain tolerable Cast still well fitting ? SNF Transfer today. F/U 1 wk Objective: Vital Signs Temp Pulse Resp BP Pulse Ox 37.3 C 84 16 112/70 92 04/29/17 22:53 04/29/17 22:53 04/29/17 22:53 04/29/17 22:53 04/29/17 22:53 Laboratory Results 04/24/17 05:15 04/24/17 05:15 04/29/17 04/30/17 05/01/17 05:59 05:59 05:59 Intake Total 300 Output Total 600 800 Balance -300 -800 ICD10 Worksheet Patient Problems: Problems Problem Status Onset Avascular necrosis of the head of femur Active Bronchitis Active Alcohol abuse with intoxication delirium Acute Alcohol abuse, continuous Acute COPD exacerbation Acute Chronic low back pain Acute GI bleed Acute Subdural hematoma, acute Acute
[2017-04-30] MEDS: FERROUS SULFATE 325 MG TAB PO SCH (07:56)
[2017-04-30] MEDS: ENOXAPARIN 40 MG/0.4 ML SYR SC SCH (07:56)
[2017-04-30] MEDS: NICOTINE 21 MG/24 HR PATCH TD SCH (07:56)
[2017-04-30] MEDS: carBAMazepine ER 300 MG CAP PO SCH ×2 (07:56→21:03)
[2017-04-30] MEDS: MULTIVITAMINS 1 EACH TAB PO SCH (07:56)
[2017-04-30] MEDS: CALCIUM CARBONATE 500 MG TAB PO SCH ×2 (07:57→21:04)
[2017-04-30] MEDS: PANTOPRAZOLE SODIUM 40 MG TAB PO SCH ×2 (07:57→21:04)
[2017-04-30] MEDS: GABAPENTIN 300 MG CAP PO SCH ×3 (07:57→21:04)
[2017-04-30] MEDS: FOLIC ACID 1 MG TAB PO SCH (07:57)
[2017-04-30] MEDS: oxyCODONE IR 5 MG TAB PO PRN ×3 (07:57→21:02)
[2017-04-30] MEDS: POLYETHYLENE GLYCOL 3350 17 GM PKT PO SCH ×2 (07:59→21:06)
[2017-04-30] MEDS: SENNOSIDES/DOCUSATE SODIUM TAB PO SCH ×2 (08:00→21:06)
[2017-04-30] MEDS: FLUTICASONE/SALMETER 250/50MCG DISKUS IH SCH ×2 (09:53→21:22)
--- NOTE | 2017-04-30 11:02 | WOCRNPDOC ---
DEVANTE Advanced Assessment Note - Skin Integrity Problem, Advanced Assess Right Posterior Upper Thigh Pressure Injury Dressing Type: Open to Air Exudate Amount: None Integumentary Issue Intervention: Dressing Applied Lexy Wound Tissue: Erythema, Non-blanching Lexy Wound Swelling: Moderate Wound Bed Color: Yellow Wound Bed Constitution: Adhered Slough Wound Edges: Not Attached Site Measurement - Head-to-Toe Length X Width X Depth (cm): 12x2x0.1 (totality of non blanching area) and on lateral portion of thigh, Unstagable pressure injury: 9x0.2x0.2. Pressure Injury Stage: Unstageable, Mathematics Instructor Related Pressure Injury ( from cast) Pressure Injury Present on Admit: No Skin Integrity Problem Comment: Cushioning from back of cast has slipped down and the back of the cast is putting a large amount of pressure on the patient's upper thigh. The cast is also too long. There are also lacerations from the sharp edge of the cast rubbing on the patient's skin. It is difficult to move the cast away enough to even assess the wound and despite mepilex foam padding being placed under the cast edge, the skin/tissue will continue to deteriorate if the cast isnt cut down. Reported this to Dr. Palmer of orthopedics. He plans to cut down cast this evening/end of day. Reported to Dee VINCENT. Oneal LEBLANC assisted with care. Dr. Palmer removed the upper portion of the cast in the afternoon. The wound was cleaned with ns and gauze. Wound gel was applied to the wound bed and the area was covered with Allevyn Life dressing. Right Upper Lateral Thigh Pressure Injury Dressing Type: Open to Air Exudate Amount: Scant Exudate Characteristic(s): Serosanguinous Lexy Wound Tissue: Erythema, Non-blanching Wound Bed Color: Black, [place], Red Wound Bed Constitution: Smooth Tissue (60%), Stable Eschar (40%) Site Measurement - Head-to-Toe Length X Width X Depth (cm): 1.5 (this is only what is visible as wound extends down leg into the cast) x0.5x0.2 Pressure Injury Stage: Unstageable, Mathematics Instructor Related Pressure Injury Pressure Injury Present on Admit: No Skin Integrity Problem Comment: Patient has pressure injury that is from the drain tubing of the CIARAN being pressed against the patient's skin under the cast. The top 0.5x0.5 is eschar. The wound extends distally from lateral thigh toward knee under the cast and is not visible.
--- NOTE | 2017-04-30 15:43 | HOSPPROG ---
Hospitalist Progress Note Assessment/Plan: DIAGNOSES, PLANS: # S/P BKA for chronic nonhealing foot infections/deformities phantom pain: neurontin at 300 tid as well as her carbamazepine Cymbalta could be added over time if she continues to have significant trouble with this pain # pressure injury to skin to her cast on the posterior aspect of the thigh Dr. Jackson has been notified and will revisit the patient and removed a portion of the cast. Our reexamine skin after this # seizure disorder: continue carbamazepine. this may help w phantom pain # pain: overall reasonably well controlled agree w scheduled tylenol # alcohol: admits alcohol somewhat recently -still no signs withdrawal From an internal medicine standpoint she is stable for discharge SUBJECTIVE: little change in pain control at all still satisfactory per patient No fever symptoms OBJECTIVE: vitals: stable with no fever exam: alert oriented, relaxed skin warm dry resps easy lungs clear heart reg R leg in cast, at this point she has developed to separate pressure injury to the skin at the proximal edge of the cast part of which I am unable to examine completely because it is hidden by the cast. Some of the skin is open. It is hard to rule out some cellulitis at this point without being able to examine this completely but there is nothing draining iv site good Objective: Vital Signs Temp Pulse Resp BP Pulse Ox 37.0 C 81 16 100/68 93 04/30/17 07:41 04/30/17 09:48 04/30/17 09:48 04/30/17 07:41 04/30/17 09:48 Laboratory Results 04/24/17 05:15 04/24/17 05:15 04/29/17 04/30/17 05/01/17 06:59 06:59 06:59 Intake Total 300 Output Total 600 800 Balance -300 -800 ICD10 Worksheet Patient Problems: Problems Problem Status Onset Avascular necrosis of the head of femur Active Bronchitis Active Alcohol abuse with intoxication delirium Acute Alcohol abuse, continuous Acute COPD exacerbation Acute Chronic low back pain Acute GI bleed Acute Subdural hematoma, acute Acute
[2017-04-30] MEDS: VENLAFAXINE XR 150 MG CAP PO SCH (21:04)
[2017-05-01] MEDS: oxyCODONE IR 5 MG TAB PO PRN ×3 (00:28→14:11)
[2017-05-01] MEDS: SENNOSIDES/DOCUSATE SODIUM TAB PO SCH (09:04)
[2017-05-01] MEDS: POLYETHYLENE GLYCOL 3350 17 GM PKT PO SCH (09:04)
[2017-05-01] MEDS: carBAMazepine ER 300 MG CAP PO SCH (09:04)
[2017-05-01] MEDS: ACETAMINOPHEN 325 MG TAB PO PRN ×2 (09:05→16:53)
[2017-05-01] MEDS: FOLIC ACID 1 MG TAB PO SCH (09:06)
[2017-05-01] MEDS: FERROUS SULFATE 325 MG TAB PO SCH (09:06)
[2017-05-01] MEDS: GABAPENTIN 300 MG CAP PO SCH ×2 (09:06→16:54)
[2017-05-01] MEDS: CALCIUM CARBONATE 500 MG TAB PO SCH (09:07)
[2017-05-01] MEDS: PANTOPRAZOLE SODIUM 40 MG TAB PO SCH (09:07)
[2017-05-01] MEDS: MULTIVITAMINS 1 EACH TAB PO SCH (09:07)
--- NOTE | 2017-05-01 10:03 | HOSPPROG ---
Hospitalist Progress Note Assessment/Plan: DIAGNOSES, PLANS: # S/P BKA for chronic nonhealing foot infections/deformities phantom pain: neurontin at 300 tid as well as her carbamazepine Cymbalta could be added over time if she continues to have significant trouble with this pain # pressure injury to skin to her cast on the posterior aspect of the thigh her wounds remain open there is no sign of cellulitis or other infectious changes; her cast but this been appropriately trimmed back so there is no pressure on these areas and no appearance of pressure changes in other areas Ongoing wound care is indicated # seizure disorder: continue carbamazepine. this may help w phantom pain # pain: overall reasonably well controlled agree w scheduled tylenol # alcohol: admits alcohol somewhat recently -no signs withdrawal From an internal medicine standpoint she is stable for discharge SUBJECTIVE: little change in pain control at all still satisfactory per patient No fever symptoms OBJECTIVE: vitals: stable with no fever exam: alert oriented, relaxed skin warm dry resps easy lungs clear heart reg R leg in cast has been trimmed back so that is no longer creating pressure for her leg. Skin looks wounds have small open areas full-thickness, and there is some slight pressure induced redness around these areas but no evidence of cellulitis, drainage, abscess, necrosis or other concerning features Objective: Vital Signs Temp Pulse Resp BP Pulse Ox 36.7 C 67 14 105/69 91 L 05/01/17 08:00 05/01/17 08:00 05/01/17 08:00 05/01/17 08:00 05/01/17 08:00 Laboratory Results 04/24/17 05:15 04/24/17 05:15 04/30/17 05/01/17 05/02/17 06:59 06:59 06:59 Output Total 800 1550 300 Balance -800 -1550 -300 ICD10 Worksheet Patient Problems: Problems Problem Status Onset Avascular necrosis of the head of femur Active Bronchitis Active Alcohol abuse with intoxication delirium Acute Alcohol abuse, continuous Acute COPD exacerbation Acute Chronic low back pain Acute GI bleed Acute Subdural hematoma, acute Acute
[2017-05-01] MEDS: FLUTICASONE/SALMETER 250/50MCG DISKUS IH SCH (10:12)
[2017-05-01] MEDS: NICOTINE 21 MG/24 HR PATCH TD SCH (10:59)
[2017-05-01] MEDS: ENOXAPARIN 40 MG/0.4 ML SYR SC SCH (11:00)
[2017-05-01 16:33] VITALS: BP 109/68; PULSE 74; RESP 16; TEMP 98.6; O2SAT 93
--- NOTE | 2017-05-01 17:05 | PDIAF ---
- Diagnosis Diagnosis: s/p right bka due to chronic non-healing foot wound Code Status: Full Code - Medication Management Discharge Medications: Medications to Continue on Transfer Multivitamins [Multivitamin (*)] 1 each PO DAILY #0 tab 05/31/14 [Last Taken 01/20] carBAMazepine ER [Carbatrol (*)] 300 mg PO BID #60 cap 05/31/14 [Last Taken 06:30] Calcium Carbonate [Oyster Shell Calcium 500 mg (*)] 500 mg PO BID 10/30/14 [ Last Taken 04/08/17] Folic Acid [Folic Acid 1 MG (*)] 1 mg PO DAILY #0 tab 11/18/14 [Last Taken 04/08] Ferrous Sulfate [Ferrous Sulf 325 MG (*)] 325 mg PO DAILY 01/15/17 [Last Taken 04/21/17] Fluticasone/Salmeter 250/50Mcg [Advair 250/50 (*)] 1 puffs IH BID #1 disk [Last Taken 04/21/17 18:30] Pantoprazole Sodium [Protonix 40mg (*)] 40 mg PO BID #60 tab 01/20/17 [Last Taken 04/22/17 06:30] traMADol [Ultram 50 mg (*)] 50 mg PO Q4-6PRN PRN 03/17/17 [Last Taken 04/08/17] Venlafaxine Xr [Effexor Xr] 150 mg PO HS 04/24/17 [Last Taken Unknown] Acetaminophen [Tylenol ES 500 mg (*)] 1,000 mg PO Q8HRS PRN #0 tab 04/25/17 [ Last Taken Unknown] Polyethylene Glycol 3350 [Miralax 17 gm (*)] 17 gm PO DAILY #0 pkt 04/25/17 [ Last Taken Unknown] Sennosides/Docusate Sodium [Senokot-S] 1 - 2 tab PO BID #0 tab 04/25/17 [Last Taken Unknown] Venlafaxine Xr [Effexor Xr] 150 mg PO HS #0 cap 04/25/17 [Last Taken Unknown] Discharge Medications: Refer to the Discharge Home Medication list for PRN reason. - Orders Services needed: Physical Therapy Diet Recommendation: no restrictions on diet Wound Care Instructions: Cast to stay in place Activity/Weight Bearing Restrictions: Non weight bearing right lower extremity - Follow Up Care Current Providers and Referrals: Prasad Palmer MD [Medical Doctor] - Christin John MD [Primary Care Provider] -
--- NOTE | 2017-05-01 17:08 | PDDCSUM ---
Discharge Summary Discharge Summary: Saadia Hyman is a pleasant 46 yo female, who presented for surgery of Right BKA due to chronic right foot non-healing wound. Patient will be discharged to [facility] for rehabilitaiton. She is non-weightbearing right lower extremity. Pain medication is oxycodone 5mg 1tab po q4-6h prn pain, dispo #60 (sixty) no refills
== END 2017-05-01 18:37 | DRG 476 ==
LOC: F3N 08:07 → F3E 04-29 16:32
PROVIDERS: ADMIT Orthopaedic Surgery Foot and Ankle Surgery; ATTEND Orthopaedic Surgery Foot and Ankle Surgery
PROC: 0SG Lower Joints, Fusion (ICD-10-PCS; principal; 2017-04-22 09:30)
PROC: 0Y6H0Z1 Detachment at Right Lower Leg, High, Open Approach (ICD-10-PCS; principal; 2017-04-22 09:30)
DX: M86.671 Other chronic osteomyelitis, right ankle and foot (principal); Q66.3 Other congenital varus deformities of feet; E11.621 Type 2 diabetes mellitus with foot ulcer; L97.519 Non-pressure chronic ulcer of other part of right foot with unspecified severity; J44.9 Chronic obstructive pulmonary disease, unspecified; G40.909 Epilepsy, unspecified, not intractable, without status epilepticus; F17.210 Nicotine dependence, cigarettes, uncomplicated; J45.909 Unspecified asthma, uncomplicated; F10.10 Alcohol abuse, uncomplicated; F32.9 Major depressive disorder, single episode, unspecified; K59.00 Constipation, unspecified; K21.9 Gastro-esophageal reflux disease without esophagitis; Z88.0 Allergy status to penicillin; Z96.643 Presence of artificial hip joint, bilateral; Z87.820 Personal history of traumatic brain injury; Z91.81 History of falling; Z79.51 Long term (current) use of inhaled steroids
CPT/HCPCS: 97110-GO; 97110-GP; 97116-GP; 97162-GP; 97165-GO; 97530-GO; 97530-GP; 97535-GO; C1713; J1100; J1170; J1650; J2250; J2405; J2704; J3010

== ENCOUNTER 2017-11-13 12:56 | Emergency (ER) | payer MEDICAID ==
[2017-11-13 13:08] VITALS: TEMP 98
--- NOTE | 2017-11-13 13:26 | EDPHY ---
H & P Stated Complaint: Drinking fell out side apt this am Time Seen by Provider: 11/13/17 13:19 HPI/ROS: CHIEF COMPLAINT: Head injury HISTORY OF PRESENT ILLNESS: The patient is a 47-year-old alcoholic female who fell this morning at the back of her head. She does have a history of subdural hemorrhage. She is not on blood thinners. She also has a left [id number] amputation and foot drop on the right. She has a history of seizures. She did not have a seizure today. She has a hematoma and bleeding to the back of her head. She denies loss of consciousness. She denies neck pain. She does have a headache. She denies chest pain or shortness of breath. She denies injuries to her extremities. She also has history of COPD she does not wear oxygen at baseline. REVIEW OF SYSTEMS: Constitutional: denies: chills, fever, recent illness, recent injury EENTM: denies: blurred vision, double vision, nose congestion Respiratory: denies: cough, shortness of breath Cardiac: denies: chest pain, irregular heart rate, lightheadedness, palpitations Gastrointestinal/Abdominal: denies: abdominal pain, diarrhea, nausea, vomiting, blood streaked stools Genitourinary: denies: dysuria, frequency, hematuria, pain Musculoskeletal: See HPI Skin: denies: lesions, rash, jaundice, bruising Neurological: denies: headache, numbness, paresthesia, tingling, dizziness, weakness Hematologic/Lymphatic: denies: blood clots, easy bleeding, easy bruising Immunologic/allergic: denies: HIV/AIDS, transplant EXAM: GENERAL: Well-appearing, well-nourished and in no acute distress. HEAD: Hematoma left occipital region with moderate amount of bleeding. EYES: Pupils equal round and reactive to light, extraocular movements intact, sclera anicteric, conjunctiva are normal. ENT: TMs normal, nares patent, oropharynx clear without exudates. Moist mucous membranes. NECK: No tenderness or pain, Normal range of motion, supple without lymphadenopathy or JVD. LUNGS: Breath sounds clear to auscultation bilaterally and equal. No wheezes rales or rhonchi. HEART: Regular rate and rhythm without murmurs, rubs or gallops. ABDOMEN: Soft, nontender, normoactive bowel sounds. No guarding, no rebound. No masses appreciated. BACK: No CVA tenderness, no spinal tenderness, step-offs or deformities EXTREMITIES: Left [id number] amputation, Normal range of motion, no pitting or edema. No clubbing or cyanosis. NEUROLOGICAL: Cranial nerves II through XII grossly intact. Normal speech, normal gait. 5/5 strength, normal movement in all extremities, normal sensation PSYCH: Normal mood, normal affect. SKIN: Warm, dry, normal turgor, no visible rashes or lesions. Source: Patient Exam Limitations: No limitations - Personal History LMP (Females 10-55): Unknown Tetanus Vaccine Date: 2011 - Medical/Surgical History Hx Asthma: Yes Hx Chronic Respiratory Disease: Yes Hx Diabetes: No Hx Cardiac Disease: No Hx Renal Disease: No Hx Cirrhosis: No Hx Alcoholism: Yes Hx HIV/AIDS: No Hx Splenectomy or Spleen Trauma: No Other PMH: Seizure disorder, COPD Arthritis, alcoholism, foot drop, multiple falls, depression. 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 - Family History Significant Family History: No pertinent family hx - Social History Smoking Status: Heavy smoker Alcohol Use: Sober Drug Use: None Constitutional: Initial Vital Signs Temperature (C) 36.6 C 11/13/17 13:05 Heart Rate 88 11/13/17 13:05 Respiratory Rate 18 11/13/17 13:05 Blood Pressure 123/88 H 11/13/17 13:05 O2 Sat (%) 96 11/13/17 13:05 O2 Delivery Mode Room Air Allergies/Adverse Reactions: phenytoin sodium [From Dilantin] Allergy (Intermediate, Verified 03/24/17 13:56) facial swelling, drunk feeling phenytoin sodium extended [From Dilantin] Allergy (Intermediate, Verified 13:56) facial swelling, drunk feeling Penicillins Allergy (Mild, Verified 03/24/17 13:56) FACIAL EDEMA Sulfa (Sulfonamide Antibiotics) Allergy (Mild, Verified 03/24/17 13:56) FACIAL EDEMA/ HIVES clarithromycin Allergy (Unknown, Unverified 06/10/17 14:38) FACIAL EDEMA levofloxacin Allergy (Unknown, Unverified 06/10/17 14:38) FACIAL EDEMA, DRUNK FEELING phenytoin sodium Allergy (Unknown, Uncoded 06/10/17 14:38) facial swelling, drunk feeling phenytoin sodium extended Allergy (Unknown, Uncoded 06/10/17 14:38) facial swelling, drunk feeling Home Medications: Medication Instructions Recorded Multivitamins [Multivitamin (*)] 1 each PO DAILY #0 tab 05/31/14 carBAMazepine ER [Carbatrol (*)] 300 mg PO BID #60 cap 05/31/14 Calcium Carbonate [Oyster Shell 500 mg PO BID 10/30/14 Calcium 500 mg (*)] Folic Acid [Folic Acid 1 MG (*)] 1 mg PO DAILY #0 tab 11/18/14 Ferrous Sulfate [Ferrous Sulf 325 325 mg PO DAILY 01/15/17 MG (*)] Fluticasone/Salmeter 250/50Mcg 1 puffs IH BID #1 disk 01/20/17 [Advair 250/50 (*)] Pantoprazole Sodium [Protonix 40mg 40 mg PO BID #60 tab 01/20/17 (*)] traMADol [Ultram 50 mg (*)] 50 mg PO Q4-6PRN PRN 03/17/17 Venlafaxine Xr [Effexor Xr] 150 mg PO HS 04/24/17 Acetaminophen [Tylenol ES 500 mg 1,000 mg PO Q8HRS PRN #0 tab 04/25/17 (*)] Polyethylene Glycol 3350 [Miralax 17 gm PO DAILY #0 pkt 04/25/17 17 gm (*)] Sennosides/Docusate Sodium 1 - 2 tab PO BID #0 tab 04/25/17 [Senokot-S] Venlafaxine Xr [Effexor Xr] 150 mg PO HS #0 cap 04/25/17 Acetaminophen [Tylenol 325mg (*)] 975 mg PO Q8HRS PRN #0 tab 05/01/17 Albuterol [Ventolin Hfa Inhaler] 2 puffs IH Q4HRS PRN #0 mdi 05/01/17 Gabapentin [Neurontin 300 MG (*)] 300 mg PO TID #0 cap 05/01/17 oxyCODONE IR [Oxycodone Ir (*)] 5 - 10 mg PO Q4HRS PRN #0 tab 05/01/17 Medical Decision Making - Diagnostics Imaging Results: Imaging Impressions Head CT 11/13/17 13:25 Impression: 1. Left parietal scalp hematoma. 2. Left temporal partial lobectomy for seizure. 3. No intracranial hemorrhage or epidural/subdural hematoma. 4. No skull fracture. Findings and recommendations discussed with Emergency Department physician, Darren Diana at 1411 hour, 11/13/2017. Final report concurs with initial preliminary interpretation. Imaging: Discussed imaging studies w/ consumer relations complaint clerk Radiologist Procedures: Procedure: Laceration repair. Verbal consent was obtained from the patient. The 3 cm scalp laceration was anesthetized with 1% lidocaine with epi and bicarbonate locally infiltrated. The wound was irrigated copiously according to protocol, draped and explored to its base. It was approximately 1/2 cm deep. There were no deep structures involved. No tendon, nerve, or vascular injury was identified when explored. No foreign body was identified. The wound was repaired with 4.0 Prolene, 7 sutures, interrupted. The wound repair was complex. The procedure was performed by myself. A dressing was then placed with sterile gauze and bacitracin. ED Course/Re-evaluation: Reviewed the images with Dr. Woo Helm. No intracranial hemorrhage or fracture. She does have a left temporal lobe removed for seizures which she did not tell me initially but now tells me it happened about 10 years ago. Her saturations are slightly low in the high 80s but this is a baseline. She denies shortness of breath cough chest pain and cetera. She is eager to leave and declines further workup or testing. We discussed suture care. Differential Diagnosis: Partial list of the Differential diagnosis considered include but were not limited to; laceration, contusion, fracture, intracranial hemorrhage, alcoholism and although unlikely based on the history and physical exam, I also considered pneumonia, thoracic injury, extremity injury. Departure - Departure Disposition: Home, Routine, Self-Care Clinical Impression: Alcoholism, Hematoma Scalp laceration Qualifiers: Encounter type: initial encounter Qualified Code(s): S01.01XA - Laceration without foreign body of scalp, initial encounter Condition: Fair Instructions: Care For Your Stitches (ED), Laceration (ED), Hematoma (ED) Additional Instructions: Have your stitches out in 10 days. Referrals: Christin John MD [Primary Care Provider] - As per Instructions
[2017-11-13 14:35] VITALS: BP 154/88; PULSE 89; RESP 16; O2SAT 90
== END 2017-11-13 14:34 | disposition home or self-care (01) ==
LOC: CED 12:56
PROC: 0HQ0XZZ Repair Scalp Skin, External Approach (ICD-10-PCS; principal; 2017-11-13)
DX: S01.01XA Laceration without foreign body of scalp, initial encounter (principal); F10.20 Alcohol dependence, uncomplicated; F17.200 Nicotine dependence, unspecified, uncomplicated; J44.9 Chronic obstructive pulmonary disease, unspecified; W19.XXXA Unspecified fall, initial encounter
CPT/HCPCS: 70450-PO

== ENCOUNTER → 2017-12-08 | Outpatient (CLI) | payer MEDICAID | LOC: CIMAGING 10:18 | PROVIDERS: ATTEND Physician Assistant | DX: K76.0 Fatty (change of) liver, not elsewhere classified (principal); K82.1 Hydrops of gallbladder | CPT/HCPCS: 76705-PO ==

== ENCOUNTER → 2018-09-25 | Outpatient (CLI) | payer MEDICAID | LOC: FIMAGING 13:47 | PROVIDERS: ATTEND Family Medicine | DX: Z12.31 Encounter for screening mammogram for malignant neoplasm of breast (principal) ==

== ENCOUNTER 2019-01-03 12:40 | Emergency (ER) | payer MEDICAID ==
--- NOTE | 2019-01-03 14:20 | EDPHY ---
H & P Stated Complaint: Pt. states fell yesterday afternoon, fell onto rt wrst,denies loc Time Seen by Provider: 01/03/19 12:45 HPI/ROS: 48-year-old female presents complaining of fall yesterday landing on an outstretched hand now with right wrist and hand pain. She has a prior hx of freqeunt falls. Review of systems As per HPI General no fever no chills no weakness HEENT no eye pain no eye discharge. No eye redness, no sore throat Respiratory no cough, no shortness of breath Cardiac no chest pain, no peripheral edema GI no abdominal pain, no diarrhea, no constipation, no nausea, no vomiting no flank pain, no hematuria, no dysuria Musculoskeletal no myalgias, positive joint pain Heme no easy bruising, no easy bleeding Endo no polyuria, no polydipsia Skin no rashes, no pruritus Neuro no syncope, no dizziness, no headaches Psych is no suicidal ideation, no homicidal ideation Source: Patient Exam Limitations: No limitations - Personal History LMP (Females 10-55): Post Menopausal Current Tetanus Diphtheria and Acellular Pertussis (TDAP): Yes Tetanus Vaccine Date: 2011 - Medical/Surgical History Hx Asthma: Yes Hx Chronic Respiratory Disease: Yes Hx Diabetes: No Hx Cardiac Disease: No Hx Renal Disease: No Hx Cirrhosis: No Hx Alcoholism: Yes Hx HIV/AIDS: No Hx Splenectomy or Spleen Trauma: No Other PMH: Seizure disorder, COPD Arthritis, alcoholism, foot drop, multiple falls, depression, RT-BKA. 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 - Family History Significant Family History: No pertinent family hx - Social History Smoking Status: Heavy smoker Alcohol Use: Occasionally - Physical Exam Exam: 48 yo F alert and oriented in no acute distress Atraumatic normocephalic Neck supple Lungs clear to auscultation, no respiratory distress Heart regular rate and rhythm Extremities Right upper extremity-positive mild swelling to distal wrist with tenderness overlying distal radius No gross deformity, good pulses, full range of motion of digits as well as elbow Decreased range of motion at wrist secondary to pain, no obvious laxity Constitutional: Initial Vital Signs Temperature (C) 36.9 C 01/03/19 12:54 Heart Rate 94 01/03/19 12:54 Respiratory Rate 16 01/03/19 12:54 Blood Pressure 119/80 01/03/19 12:54 O2 Sat (%) 91 L 01/03/19 12:54 O2 Delivery Mode Room Air Allergies/Adverse Reactions: phenytoin sodium [From Dilantin] Allergy (Intermediate, Verified 01/03/19 12:47) facial swelling, drunk feeling phenytoin sodium extended [From Dilantin] Allergy (Intermediate, Verified 12:47) facial swelling, drunk feeling Penicillins Allergy (Mild, Verified 01/03/19 12:47) FACIAL EDEMA Sulfa (Sulfonamide Antibiotics) Allergy (Mild, Verified 01/03/19 12:47) FACIAL EDEMA/ HIVES clarithromycin Allergy (Unknown, Unverified 01/03/19 12:47) FACIAL EDEMA levofloxacin Allergy (Unknown, Unverified 01/03/19 12:47) FACIAL EDEMA, DRUNK FEELING Home Medications: Medication Instructions Recorded Multivitamins [Multivitamin (*)] 1 each PO DAILY #0 tab 05/31/14 carBAMazepine ER [Carbatrol (*)] 300 mg PO BID #60 cap 05/31/14 Calcium Carbonate [Oyster Shell 500 mg PO BID 10/30/14 Calcium 500 mg (*)] Folic Acid [Folic Acid 1 MG (*)] 1 mg PO DAILY #0 tab 11/18/14 Fluticasone/Salmeter 250/50Mcg 1 puffs IH BID #1 disk 01/20/17 [Advair 250/50 (*)] Pantoprazole Sodium [Protonix 40mg 40 mg PO BID #60 tab 01/20/17 (*)] traMADol [Ultram 50 mg (*)] 50 mg PO Q4-6PRN PRN 03/17/17 Acetaminophen [Tylenol ES 500 mg 1,000 mg PO Q8HRS PRN #0 tab 04/25/17 (*)] Acetaminophen [Tylenol 325mg (*)] 975 mg PO Q8HRS PRN #0 tab 05/01/17 Albuterol [Ventolin Hfa Inhaler] 2 puffs IH Q4HRS PRN #0 mdi 05/01/17 Vitamin B-12 01/03/19 Vitamin D3 01/03/19 Medical Decision Making ED Course/Re-evaluation: Patient seen and evaluated for right wrist pain X-ray with minimally displaced fracture distal radius Impression Wrist fracture, right Plan Thumb spica Sling Follow-up with Orthopedics Differential Diagnosis: Differential diagnosis considered but not limited to: Wrist sprain, metacarpal fracture, radius fracture, ulnar fracture, wrist contusion Departure - Departure Disposition: Home, Routine, Self-Care Clinical Impression: Distal radius fracture, right Condition: Good Instructions: Wrist Fracture in Adults (ED) Additional Instructions: rest, ice , elevate acetaminophen every 6 hours as needed for pain Referrals: Christin John MD [Primary Care Provider] - As per Instructions Rafael Peralta MD [Medical Doctor] - As per Instructions
[2019-01-03 15:04] VITALS: BP 122/80
== END 2019-01-03 15:02 | disposition home or self-care (01) ==
LOC: CED 12:40
DX: S52.501A Unspecified fracture of the lower end of right radius, initial encounter for closed fracture (principal); W01.198A Fall on same level from slipping, tripping and stumbling with subsequent striking against other object, initial encounter; Y93.01 Activity, walking, marching and hiking; Y92.008 Other place in unspecified non-institutional (private) residence as the place of occurrence of the external cause; Z91.81 History of falling; Z96.643 Presence of artificial hip joint, bilateral
CPT/HCPCS: 73110-PO; 73120-PO; 99283-ER; A4565-ER

== ENCOUNTER → 2019-01-31 | Outpatient (CLI) | payer MEDICAID | LOC: FCPNEURO 21:00 | PROVIDERS: ATTEND Student in an Organized Health Care Education/Training Program | DX: G47.33 Obstructive sleep apnea (adult) (pediatric) (principal) ==

== ENCOUNTER 2019-02-05 20:22 | Emergency (ER) | payer MEDICAID ==
[2019-02-05] MEDS ORDERED: IPRATROPIUM/ALBUTEROL 3 ML DEYVIAL IH ONE (20:52)
[2019-02-05] MEDS ORDERED: IPRATROPIUM/ALBUTEROL 3 ML DEYVIAL ONE (20:53)
--- NOTE | 2019-02-05 21:00 | EDPHY ---
H & P Stated Complaint: ETOH- fell last night in bathroom- last fall few days ago Time Seen by Provider: 02/05/19 20:27 HPI/ROS: CHIEF COMPLAINT: Head pain after fall HISTORY OF PRESENT ILLNESS: This is a 48-year-old female with multiple medical problems. She has a history of seizure disorder, ETOH dependence, COPD, and depression. She has had her bilateral hip replacements and a right BKA. She states that she fell last night in the bathroom around midnight. She struck the back of her head on tile. She did not lose consciousness. She does not take any anticoagulants. She comes tonight because of pain on the back of her head. Her mother brought her to the emergency department. She has no other complaints. She denies having had a seizure. She states that her last seizure was a couple of months ago. She is compliant with her seizure medications, per her report. She denies confusion, visual changes, new numbness, new weakness, difficulty with speech. She has no neck or back pain. Tetanus updated 2012. REVIEW OF SYSTEMS: A ten system review of systems was performed and is negative with the exception of the items mentioned in the HPI. Past medical history: 1. Seizure disorder 2. Alcohol dependence 3. Tobacco abuse 4. COPD 5. Depression 6. Right distal radius fracture Past surgical history: 1. Bilateral hip replacements--avascular necrosis 2. Right BKA--footdrop following her right hip arthroplasty with nonhealing ulcers and osteomyelitis, BKA in April of 2017 3. Brain surgery for seizure disorder Social history: She typically lives by herself but tells me that she has a friend who is living with her and helping her now. She smokes 1/2 pack of cigarettes daily. She drinks 3 beers daily, per her report. No illicits. No marijuana. She is not employed. General Appearance: Alert. Vital signs reviewed. Blood pressure 124/78. Disheveled. Head: Hair is matted with blood in the back. There is is a parietal occipital cephalohematoma. I have not identified a laceration. No facial bone tenderness. There is an abrasion over the right lateral eyebrow that she tells me is old. Eyes: Pupils equal and round, no conjunctival injection, no discharge. Anicteric. ENT, Mouth: Mucous membranes are moist, no oropharyngeal erythema or edema. Dentition in poor repair. No trismus. No hemotympanum. Neck: Nontender to palpation over the cervical spine in the midline. No pain with active range of motion of her neck. Respiratory: Lungs with poor air exchange and diffuse wheezes. Thorax: Nontender to palpation, no crepitus. Cardiovascular: Regular rate and rhythm; no murmur, rub, or gallop. Gastrointestinal: Abdomen is soft and nontender, no masses or organomegaly, bowel sounds normal. Skin: Warm and dry, no rashes on exposed skin, normal color. Scattered small scabs over her upper extremities and a few on her face. I note that she is picking at her arms. There is a 3 in x 5 in bruise over the right thoracic rib cage and a smaller bruise lateral to that in the posterior axillary line on the right. She tells me that these are old. There is a yellow purple bruise above her left breast. Back: Nontender to palpation over the thoracolumbar spine. No CVAT. Extremities: No left lower extremity edema. No bony tenderness or deformity. There is a cast over the right wrist. Right BKA with prosthesis in place. Left elbow with bony deformity, chronic appearing. There is a 1/2 cm by 1/2 cm abrasion on the right elbow. Full active range of motion of the left elbow. Overlying the MCP of the right index finger there is a dime-sized area of erythema with a small amount of purulence that was easily expressed. Neurological: Alert and oriented. Moving all four extremities easily and equally. Right BKA with prosthesis in place. MOIRA. EOMI. Tongue midline. Facial expressions symmetric. Strength is 5 over 5 bilaterally with testing of all major motor groups. Sensation is intact to light touch over all 4 extremities. Psychiatric: Normal affect. - Personal History LMP (Females 10-55): Unknown Tetanus Vaccine Date: 2011 - Medical/Surgical History Hx Asthma: Yes Hx Chronic Respiratory Disease: Yes Hx Diabetes: No Hx Cardiac Disease: No Hx Renal Disease: No Hx Cirrhosis: No Hx Alcoholism: Yes Hx HIV/AIDS: No Hx Splenectomy or Spleen Trauma: No Other PMH: Seizure disorder, COPD Arthritis, alcoholism, foot drop, multiple falls, depression, RT-BKA. 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 - Social History Smoking Status: Heavy smoker Constitutional: Initial Vital Signs Temperature (C) 36.6 C 02/05/19 20:33 Heart Rate 86 02/05/19 20:33 Respiratory Rate 20 02/05/19 20:33 Blood Pressure 124/78 H 02/05/19 20:33 O2 Sat (%) 97 02/05/19 20:33 O2 Delivery Mode Room Air Allergies/Adverse Reactions: phenytoin sodium [From Dilantin] Allergy (Intermediate, Verified 02/05/19 20:55) facial swelling, drunk feeling phenytoin sodium extended [From Dilantin] Allergy (Intermediate, Verified 20:55) facial swelling, drunk feeling Penicillins Allergy (Mild, Verified 02/05/19 20:55) FACIAL EDEMA Sulfa (Sulfonamide Antibiotics) Allergy (Mild, Verified 02/05/19 20:55) FACIAL EDEMA/ HIVES clarithromycin Allergy (Unknown, Verified 02/05/19 20:55) FACIAL EDEMA levofloxacin Allergy (Unknown, Verified 02/05/19 20:55) FACIAL EDEMA, DRUNK FEELING Home Medications: Medication Instructions Recorded Multivitamins [Multivitamin (*)] 1 each PO DAILY #0 tab 05/31/14 carBAMazepine ER [Carbatrol (*)] 300 mg PO BID #60 cap 05/31/14 Calcium Carbonate [Oyster Shell 500 mg PO BID 10/30/14 Calcium 500 mg (*)] Folic Acid [Folic Acid 1 MG (*)] 1 mg PO DAILY #0 tab 11/18/14 Fluticasone/Salmeter 250/50Mcg 1 puffs IH BID #1 disk 01/20/17 [Advair 250/50 (*)] Pantoprazole Sodium [Protonix 40mg 40 mg PO BID #60 tab 01/20/17 (*)] traMADol [Ultram 50 mg (*)] 50 mg PO Q4-6PRN PRN 03/17/17 Acetaminophen [Tylenol ES 500 mg 1,000 mg PO Q8HRS PRN #0 tab 04/25/17 (*)] Acetaminophen [Tylenol 325mg (*)] 975 mg PO Q8HRS PRN #0 tab 05/01/17 Albuterol [Ventolin Hfa Inhaler] 2 puffs IH Q4HRS PRN #0 mdi 05/01/17 Vitamin B-12 01/03/19 Vitamin D3 01/03/19 Medical Decision Making Procedures: Procedure: Laceration repair. Verbal consent was obtained from the patient. The 8 cm laceration on the posterior scalp was anesthetized in the usual fashion. The wound was irrigated , draped and explored to its base with a gloved finger. Clotted blood was removed. Galea was intact. The wound was repaired with 12 surgical jyoti . The wound repair was single layer. The procedure was performed by myself. ED Course/Re-evaluation: 48-year-old who fell last night struck the back of her head. She has a posterior cephalohematoma. Aside from small right elbow abrasion I have not found evidence of other traumatic injuries related to this fall. Because of her history of alcohol abuse, will obtain CT scan of the head. Will clean the area of the cephalohematoma to see if there is a laceration that might require further attention. In review of her records I note that she has had traumatic intracranial hemorrhage secondary to falls--requiring hospitalization but no surgery. I reviewed the CT scan and discussed with Dr. Gilbert. There is a small focus of what is likely subarachnoid blood versus cortical blood in the posterior frontal lobe. No mass effect. This was not seen on a previous CT in 2018. Spoke with Dr. Pardo, on-call for Neurosurgery. He reviewed the CT scan. Patient clearly states that her fall occurred last night around midnight. She is able to provide the details of the fall. He and I discussed the fact that this bleed is unlikely to progress, given that it is almost 24 hr out. He feels that it is safe for her to return home. She is being advised to stop drinking. She is being given information about fall prevention. I spoke with her about using her cane at home at all times. We also reviewed the danger signs that should prompt her to be re-evaluated immediately. When her scalp was cleaned, an 8 cm linear laceration was revealed. There was an underlying cephalohematoma that was removed. Laceration was closed with surgical jyoti. See procedure note. When questioned, it seems that her fall might have been related to alcohol. I note that she has multiple bruises of various ages. Her medical records indicate that she falls frequently. I questioned her as to whether not she was in any danger or whether anyone is hurting her and she quickly responded "No". She was offered [facility] but declines. Her mother is here with her and will be watching her tonight. Patient was counseled about both alcohol abuse and tobacco abuse. Lung exam reveals diffuse wheezes and poor air exchange. DuoNeb given in the emergency department. Differential Diagnosis: I considered a differential diagnosis of traumatic injury that includes but is not limited to intracranial hemorrhage, skull fracture, concussion, vertebral injury, spinal cord injury, intrathoracic injury, intra-abdominal injury, long bone fractures, contusions, abrasions, and lacerations. - Data Points Medications Given: Discontinued Medications Albuterol/Ipratropium (Duoneb) 3 ml IH EDNOW ONE Stop: 02/05/19 20:53 Last Admin: 02/05/19 20:55 Dose: 3 ml Departure - Departure Disposition: Home, Routine, Self-Care Clinical Impression: Alcohol abuse, continuous, Subarachnoid hemorrhage Scalp contusion Qualifiers: Encounter type: initial encounter Qualified Code(s): S00.03XA - Contusion of scalp, initial encounter Scalp laceration Qualifiers: Encounter type: initial encounter Qualified Code(s): S01.01XA - Laceration without foreign body of scalp, initial encounter Instructions: Laceration (ED), Abuse of Alcohol (ED), Subarachnoid Hemorrhage ( DC), Scalp Contusion in Adults (ED), Staple Care (ED), Fall Prevention (ED) Additional Instructions: It is concerning that you fall frequently. Jacob's CT scan shows a small area of bleeding on the right side of your brain. Since this occurred yesterday it is unlikely to worsen and cause problems. However, you should do everything you can to avoid falling again. Use your cane or your walker at home, all of the time. Try to stop drinking--I think that drinking alcohol is causing you to fall. It also causes you to bleed more easily. Please follow up with Dr. John within the week, just to be sure that you are doing okay. Take all of your medications as prescribed. You can take Tylenol for headache. You should not take ibuprofen (Advil, Motrin ). Do not take aspirin either. There are 12 jyoti that need to be removed in 5 days. You can return here to have them removed. Watch a cut on your scalp carefully for signs of infection. Signs of infection include redness, warmth, purulent drainage, swelling, increasing pain. Referrals: Christin John MD [Primary Care Provider] - As per Instructions [facility] Hotline [Outside] - As per Instructions [facility] 24 Hours [Outside] - As per Instructions
[2019-02-05 23:51] VITALS: BP 118/67
== END 2019-02-05 23:49 | disposition home or self-care (01) ==
LOC: CED 20:22
PROC: 0HQ0XZZ Repair Scalp Skin, External Approach (ICD-10-PCS; principal; 2019-02-05)
DX: S06.6X9A Traumatic subarachnoid hemorrhage with loss of consciousness of unspecified duration, initial encounter (principal); S01.01XA Laceration without foreign body of scalp, initial encounter; S20.211A Contusion of right front wall of thorax, initial encounter; S50.311A Abrasion of right elbow, initial encounter; S00.211A Abrasion of right eyelid and periocular area, initial encounter; F10.20 Alcohol dependence, uncomplicated; J44.9 Chronic obstructive pulmonary disease, unspecified; G40.909 Epilepsy, unspecified, not intractable, without status epilepticus; F32.9 Major depressive disorder, single episode, unspecified; F17.200 Nicotine dependence, unspecified, uncomplicated; W01.198A Fall on same level from slipping, tripping and stumbling with subsequent striking against other object, initial encounter; Y92.002 Bathroom of unspecified non-institutional (private) residence as the place of occurrence of the external cause; Z96.643 Presence of artificial hip joint, bilateral
CPT/HCPCS: 70450-PO; 99284-ER

== ENCOUNTER 2019-02-11 11:33 | Emergency (ER) | payer MEDICAID ==
--- NOTE | 2019-02-11 11:44 | EDPHY ---
H & P Time Seen by Provider: 02/11/19 11:42 HPI/ROS: CHIEF COMPLAINT: Drainage from wound History by patient HISTORY OF PRESENT ILLNESS: 48-year-old woman presents for suture removal of jyoti placed in a scalp laceration 6 days ago. Patient states that she has been having itching and drainage from the wound since then. She has not washed her hair. I was called to see the patient because of concern for wound infection. Patient denies any fever chills nausea vomiting. She has no prior history of MRSA. She is allergic to penicillin which gives her rash. REVIEW OF SYSTEMS: As in HPI, and all other systems reviewed and are negative Smoking Status: Heavy smoker Physical Exam: General Appearance: Alert, disheveled, odor of alcohol Head: normocephalic, positive 15 cm wound with jyoti with surrounding erythema and draining pus, mildly tender to touch Eyes: Pupils equal and round, reactive to light, no pallor or injection. Mouth: Mucous membranes moist. Oropharynx clear Neck: No bony tenderness, full range of motion Respiratory: Normal, effort, lungs are clear to auscultation. No wheezes, rales or rhonchi. Cardiovascular: Regular rate and rhythm. S1, S2, no murmurs, gallops or rubs appreciated Gastrointestinal: Abdomen is soft and nontender, no masses, bowel sounds normal. Back: No CVA tenderness, no bony tenderness Neurological: Awake, alert and oriented x 3, cranial nerves 2-12 intact, no pronator drift, normal gait, Skin: Warm and dry, no rashes. Musculoskeletal: No deformities or tenderness. Right wrist in cast. Extremities: full range of motion, no edema, DP2+ bilat Psychiatric: Patient has normal affect, there is no agitation. Constitutional: Initial Vital Signs Temperature (C) 37.0 C 02/11/19 11:43 Heart Rate 87 02/11/19 11:43 Respiratory Rate 16 02/11/19 11:43 Blood Pressure 127/86 H 02/11/19 11:43 O2 Sat (%) 91 L 02/11/19 11:43 O2 Delivery Mode Room Air Allergies/Adverse Reactions: phenytoin sodium [From Dilantin] Allergy (Intermediate, Verified 02/11/19 11:57) facial swelling, drunk feeling phenytoin sodium extended [From Dilantin] Allergy (Intermediate, Verified 11:57) facial swelling, drunk feeling Penicillins Allergy (Mild, Verified 02/11/19 11:57) FACIAL EDEMA Sulfa (Sulfonamide Antibiotics) Allergy (Mild, Verified 02/11/19 11:57) FACIAL EDEMA/ HIVES clarithromycin Allergy (Unknown, Verified 02/11/19 11:57) FACIAL EDEMA levofloxacin Allergy (Unknown, Verified 02/11/19 11:57) FACIAL EDEMA, DRUNK FEELING Home Medications: Medication Instructions Recorded Multivitamins [Multivitamin (*)] 1 each PO DAILY #0 tab 05/31/14 carBAMazepine ER [Carbatrol (*)] 300 mg PO BID #60 cap 05/31/14 Calcium Carbonate [Oyster Shell 500 mg PO BID 10/30/14 Calcium 500 mg (*)] Folic Acid [Folic Acid 1 MG (*)] 1 mg PO DAILY #0 tab 11/18/14 Fluticasone/Salmeter 250/50Mcg 1 puffs IH BID #1 disk 01/20/17 [Advair 250/50 (*)] Pantoprazole Sodium [Protonix 40mg 40 mg PO BID #60 tab 01/20/17 (*)] traMADol [Ultram 50 mg (*)] 50 mg PO Q4-6PRN PRN 03/17/17 Acetaminophen [Tylenol ES 500 mg 1,000 mg PO Q8HRS PRN #0 tab 04/25/17 (*)] Acetaminophen [Tylenol 325mg (*)] 975 mg PO Q8HRS PRN #0 tab 05/01/17 Albuterol [Ventolin Hfa Inhaler] 2 puffs IH Q4HRS PRN #0 mdi 05/01/17 Vitamin B-12 01/03/19 Vitamin D3 01/03/19 Cephalexin 500 mg PO BID #20 capsule 02/11/19 MDM/Departure - MDM ED Course/Re-evaluation: 48-year-old woman presents for suture removal from scalp laceration is noted to have evidence of wound infection. Patient is afebrile and hemodynamically stable. Wound was anesthetized and then re-irrigated through the jyoti. I did leave jyoti in place as the wound is only 6 days 0 old and I was concerned about a gaping wound in her scalp. Patient was started on Keflex. She is allergic to penicillin but says this gets a rash in that she has taken Keflex in the past. I am recommending recheck in 24 hr with her primary care physician Dr. John. We also discussed return precautions. - Depart Disposition: Home, Routine, Self-Care Clinical Impression: Wound infection following procedure Condition: Fair Instructions: Wound Infection (ED) Additional Instructions: You were seen by Dr. Yaneth Cardenas today. Take all antibiotics as prescribed. I recommend taking probiotics in between doses of antibiotics. You may wash her hair and should wash her hair daily as well as soak the wound or run it under the shower in warm water up to twice a day. Please have the wound rechecked with her primary care physician Dr. John tomorrow. Return immediately to the emergency department if the wound seems to be getting worse with increased pain, drainage, fever or other concerns. Return for any worsening or new concerns. Prescriptions: Cephalexin 500 mg PO BID #20 capsule Referrals: Christin John MD [Primary Care Provider] - As per Instructions
[2019-02-11] MEDS ORDERED: CEPHALEXIN 500 MG CAP PO ONE (12:52)
[2019-02-11 13:00] VITALS: BP 129/90
== END 2019-02-11 12:57 | disposition home or self-care (01) ==
LOC: CED 11:33
DX: S01.01XD Laceration without foreign body of scalp, subsequent encounter (principal); T81.41XA Infection following a procedure, superficial incisional surgical site, initial encounter
CPT/HCPCS: 99283-ER

== ENCOUNTER 2019-02-19 13:39 | Emergency (ER) | payer MEDICAID ==
--- NOTE | 2019-02-19 14:04 | EDPHY ---
H & P Stated Complaint: head wound infected /check sent by pcp [place] Time Seen by Provider: 02/19/19 13:57 HPI/ROS: CHIEF COMPLAINT: Staple removal HISTORY OF PRESENT ILLNESS: The patient is a 48-year-old female alcoholic with history of seizures who fell and sustained a head injury on February 05. She had jyoti placed in her scalp and had a head CT at that time that was unremarkable. She has poor hygiene and had not been cleaning her wound or hair. She was seen again a week later and diagnosed with a wound infection and started on Keflex. This is improved significantly but she is now here for staple removal. She has matted hair and debris over the wound. No fevers. No drainage currently. No bleeding. No new injuries. Severity: Moderate Modifying factors: None REVIEW OF SYSTEMS: Constitutional: denies: chills, fever, recent illness, recent injury EENTM: denies: blurred vision, double vision, nose congestion Respiratory: denies: cough, shortness of breath Cardiac: denies: chest pain, irregular heart rate, lightheadedness, palpitations Gastrointestinal/Abdominal: denies: abdominal pain, diarrhea, nausea, vomiting, blood streaked stools Genitourinary: denies: dysuria, frequency, hematuria, pain Musculoskeletal: denies: joint pain, muscle pain Skin: See HPI Neurological: denies: headache, numbness, paresthesia, tingling, dizziness, weakness Hematologic/Lymphatic: denies: blood clots, easy bleeding, easy bruising Immunologic/allergic: denies: HIV/AIDS, transplant 10 systems reviewed and negative except as noted EXAM: GENERAL: Well-appearing, well-nourished and in no acute distress. HEAD: Matted hair and debris, wound otherwise does not appear infected. EYES: Pupils equal round and reactive to light, extraocular movements intact, sclera anicteric, conjunctiva are normal. ENT: TMs normal, nares patent, oropharynx clear without exudates. Moist mucous membranes. NECK: Normal range of motion, supple without lymphadenopathy or JVD. LUNGS: Breath sounds clear to auscultation bilaterally and equal. No wheezes rales or rhonchi. HEART: Regular rate and rhythm without murmurs, rubs or gallops. ABDOMEN: Soft, nontender, normoactive bowel sounds. No guarding, no rebound. No masses appreciated. BACK: No CVA tenderness, no spinal tenderness, step-offs or deformities EXTREMITIES: Normal range of motion, no pitting or edema. No clubbing or cyanosis. NEUROLOGICAL: Cranial nerves II through XII grossly intact. Normal speech, normal gait. 5/5 strength, normal movement in all extremities, normal sensation , normal reflexes PSYCH: Normal mood, normal affect. SKIN: Warm, dry, normal turgor, no visible rashes or lesions. Source: Patient Exam Limitations: No limitations - Personal History LMP (Females 10-55): Post Menopausal Current Tetanus Diphtheria and Acellular Pertussis (TDAP): Yes Tetanus Vaccine Date: 2011 - Medical/Surgical History Hx Asthma: Yes Hx Chronic Respiratory Disease: Yes Hx Diabetes: No Hx Cardiac Disease: No Hx Renal Disease: No Hx Cirrhosis: No Hx Alcoholism: Yes Hx HIV/AIDS: No Hx Splenectomy or Spleen Trauma: No Other PMH: Seizure disorder, COPD Arthritis, alcoholism, foot drop, multiple falls, depression, RT-BKA. 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 - Family History Significant Family History: No pertinent family hx - Social History Smoking Status: Heavy smoker Alcohol Use: None Constitutional: Initial Vital Signs Temperature (C) 36.8 C 02/19/19 13:49 Heart Rate 95 02/19/19 13:49 Respiratory Rate 18 02/19/19 13:49 Blood Pressure 124/84 H 02/19/19 13:49 O2 Sat (%) 87 L 02/19/19 13:49 O2 Delivery Mode Room Air Allergies/Adverse Reactions: phenytoin sodium [From Dilantin] Allergy (Intermediate, Verified 02/19/19 13:54) facial swelling, drunk feeling phenytoin sodium extended [From Dilantin] Allergy (Intermediate, Verified 13:54) facial swelling, drunk feeling Penicillins Allergy (Mild, Verified 02/19/19 13:54) FACIAL EDEMA Sulfa (Sulfonamide Antibiotics) Allergy (Mild, Verified 02/19/19 13:54) FACIAL EDEMA/ HIVES clarithromycin Allergy (Unknown, Verified 02/19/19 13:54) FACIAL EDEMA levofloxacin Allergy (Unknown, Verified 02/19/19 13:54) FACIAL EDEMA, DRUNK FEELING Home Medications: Medication Instructions Recorded Multivitamins [Multivitamin (*)] 1 each PO DAILY #0 tab 05/31/14 carBAMazepine ER [Carbatrol (*)] 300 mg PO BID #60 cap 05/31/14 Calcium Carbonate [Oyster Shell 500 mg PO BID 10/30/14 Calcium 500 mg (*)] Folic Acid [Folic Acid 1 MG (*)] 1 mg PO DAILY #0 tab 11/18/14 Fluticasone/Salmeter 250/50Mcg 1 puffs IH BID #1 disk 01/20/17 [Advair 250/50 (*)] Pantoprazole Sodium [Protonix 40mg 40 mg PO BID #60 tab 01/20/17 (*)] traMADol [Ultram 50 mg (*)] 50 mg PO Q4-6PRN PRN 03/17/17 Acetaminophen [Tylenol ES 500 mg 1,000 mg PO Q8HRS PRN #0 tab 04/25/17 (*)] Acetaminophen [Tylenol 325mg (*)] 975 mg PO Q8HRS PRN #0 tab 05/01/17 Albuterol [Ventolin Hfa Inhaler] 2 puffs IH Q4HRS PRN #0 mdi 05/01/17 Vitamin B-12 01/03/19 Vitamin D3 01/03/19 Cephalexin 500 mg PO BID #20 capsule 02/11/19 Medical Decision Making ED Course/Re-evaluation: The patient's hair was cleaned and her jyoti were removed. The wound is non healed and is dehisced. There is debris but no erythema. Does not appear infected. Will dress with antibiotic ointment and have her follow up with wound care as was previously ordered by her primary care doctor. She has an appointment with them in the next couple of days. Will call them to update them. Differential Diagnosis: Partial list of the Differential diagnosis considered include but were not limited to; wound dehiscence, suture removal, wound infection and although unlikely based on the history and physical exam, I also considered fasciitis, fracture. Departure - Departure Disposition: Home, Routine, Self-Care Clinical Impression: Dehisced scalp wound Condition: Fair Instructions: Acute Wounds (ED) Additional Instructions: follow up with your PCP Alvaro on Friday , or return here sooner if any problems. Wound care clinic will call you today or on Friday with appointment time . Most likely appointment will be Friday . You need to change the dressing once daily or whenever it is soiled . Wash hands with soap and water and then place clean gauze into wound and cover that with a dressing gauze and then secure in place. /. You may shower daily and do wound care after that if you wish. Return to Emergency department if you develop any signs or symptoms of infection , such as increased redness , pain, discharge ,fever chills and or any other concerns. Referrals: [facility] [Clinic] - As per Instructions Christin John MD [Primary Care Provider] - 2-3 days, call for appt.
[2019-02-19 16:48] VITALS: BP 131/86
== END 2019-02-19 16:25 | disposition home or self-care (01) ==
LOC: CED 13:39
DX: T81.33XA Disruption of traumatic injury wound repair, initial encounter (principal); J44.9 Chronic obstructive pulmonary disease, unspecified; F10.20 Alcohol dependence, uncomplicated; Z91.81 History of falling; Z96.643 Presence of artificial hip joint, bilateral; Z89.511 Acquired absence of right leg below knee
CPT/HCPCS: 99282-ER